=== PATIENT | male | born 1975 | race African-American/Black ===

== ENCOUNTER 2024-04-23 08:41 | Inpatient (IN) ==
--- NOTE | 2024-04-23 09:49 | Emergency Department Note ---
Impression & Plan Acute osteomyelitis of toe of right foot, Acute kidney injury ED Provider Note CHIEF COMPLAINT: right 2nd toe infection HISTORY OF PRESENT ILLNESS: This 48 year old male patient presents to the emergency department via private vehicle accompanied by corrections officers for right second toe infection. Patient is infection has been ongoing since December. He notes that he is being followed by the wound clinic. He states he was referred here today because they were concerned that the wound extended to the bone. Patient states there has been no other new symptoms. He notes that he has not followed with orthopedics, though chart review does indicate that he has been seen by Dr. Flores at [facility] orthopedics. Patient states he was sent here to determine whether or not he needed to have the toe amputated. Of note, he is scheduled for an arterial Doppler study today as an outpatient and then MRI for later in the week to further evaluate his symptoms. Pt. denies fever/chills. No nausea or vomiting. No body aches or systemic symptoms. History provided by: Patient, chart review REVIEW OF SYSTEMS: A 10 system review of systems was performed with positives and pertinent negatives listed in the history of present illness. All other systems were reviewed and are negative. ALLERGIES: NKDA PHYSICAL EXAM: VITALS: Vitals are noted on the nurse's note and reviewed by myself. GENERAL: This is a 48 year old male, in no acute distress, nondiaphoretic, well- developed well-nourished. SKIN: Ulcerative wound on the plantar aspect of the right second toe. No obvious visible bone at the base of the wound. The skin color is pale on the skin surrounding the wound. There is no erythema. No purulent discharge or bleeding. The skin was without rashes, erythema, edema, or bruising. There is no tenting of the skin. Capillary refill less than 2 seconds. HEAD: Normocephalic atraumatic. EYES: Conjunctivae without injection, sclerae without icterus. MOUTH: Mucous membranes moist. NECK: Supple without nuchal rigidity. No lymphadenopathy. Cervical spine is nontender. No JVD. HEART: Regular rate and rhythm without murmurs gallops or rubs. LUNGS: Clear to auscultation bilaterally without wheezes, rales or rhonchi. No retractions or accessory muscle use. ABDOMEN: Positive bowel sounds x 4. Soft, nontender, without masses or organomegaly. Talley sign negative. No guarding or rebound tenderness. MUSCULOSKELETAL: No muscle atrophy, erythema, or edema noted. Full range of motion without joint tenderness in all extremities. Tenderness to palpation of the wound on the right 2nd toe. Otherwise, no tenderness to palpation. Normal gait. Strength 5/5 throughout. NEURO: Patient was alert and oriented to person place and time. Normal sensation to light and sharp touch. Deep tendon reflexes 2+ throughout. No focal neurological deficits. Imaging as interpreted by myself and the radiologist revealed acute osteomyelitis, with radiologist interpretation as above. I agree with the radiologist's findings as based upon my independent interpretation. EMERGENCY DEPARTMENT COURSE: The patient was seen and evaluated as above. Pt. presents from wound clinic for evaluation of right 2nd toe infection. Wound has been present for several months, but pain and purulence has acutely worsened. IV access obtained, labs drawn. No leukocytosis, anemia, thrombocytopenia. Hepatic function and electrolytes without significant abnormality. Creatinine elevated at 1.8. Inflammatory markers elevated. Discussed the case with my attending physician. Recommended inpatient care due to acute osteomyelitis and initiating IV vancomycin. Discussed case with [facility] Hospitalist. They agreed to evaluate patient. I was asked by the [facility] hospitalist to consult with orthopedics in order to ensure they are comfortable with consulting on this patient, as they noted the patient was apparently referred for toe amputation. Pt. was unclear that was the primary reason, and it appears per chart review the patient was having worsening infection symptoms to include worsening pain and purulence. I did discuss the case with Dr. Sims, orthopedic surgeon general education professor. He notes that often, these cases are managed by podiatry, however if podiatry is uncomfortable managing the case or runs into complications, he is happy to assist. I discussed this recommendation with Dr. Malin. He was concerned that if orthopedics was unwilling to manage the patient or podiatry was unavailable, that the patient may need to be transferred. Consulted again with orthopedics to confirm their willingness to become involved if necessary and was advised they are willing if needed. Please see hospitalist dictation regarding ongoing management and care as well as final disposition of this patient. I attest that I have personally reviewed the patient medication list. I attest that I have reviewed the patient's blood pressure and it was found to be normal GCS: 15 In the evaluation and treatment of this patient the following differential diagnoses were entertained: Cellulitis, abscess, MRSA infection, osteomyelitis, DVT, necrotizing fasciitis, dermatitis, drug eruption, allergic reaction, as well as other pathologies. The chart was completed utilizing [employer] Speech voice recognition software. Grammatical errors, random word insertions, pronoun errors, and incomplete sentences are an occasional consequence of this system due to software limitations, ambient noise, and hardware issues. Any formal questions or concerns about the content, text, or information contained within the body of this dictation should be directly addressed to the provider for clarification. Past Med/Surg History Problem List (Updated 04/23/24 @ 17:00 by Lucrecia Anrdes PA-C) Acute kidney injury (Acute) Anemia Hypertension Hyperlipidemia Diabetes type 2, controlled Acute osteomyelitis of toe of right foot (Acute) Diabetic toe ulcer (Acute) Medical History Protein in urine Murmur, heart Glaucoma Depressive disorder Osteoarthritis of left knee Toe osteomyelitis, right Social History Smoking Status: Former smoker Hx Alcohol Use: No Hx Substance Use: No Preferred Language: Albanian Communication Ability: Effective Visual Impairment: Limited Hearing Ability: Normal Batt Machine Operator Required: No Beliefs That Will Affect Care: Sikh Sikh Beliefs: Islamic Current Living Situation: Other Current Living Situation Comment: [facility] current occupational status: unemployed Feels Safe at Home: Yes Diet: regular caffeine: Yes during the past year weight has: increased > 10 lbs Dental Care, Regularly: No Physical Activity Frequency: Daily Assistive Devices: Glasses Allergies Allergies Allergy/AdvReac Type Severity Reaction Status Date / Time No Known Allergies Allergy Unverified 04/23/24 07:46 Home Meds Home Medications Medication Instructions Recorded Confirmed aspirin 81 mg tablet,delayed 81 mg PO DAILY ##0 06/15/16 04/23/24 release brimonidine 0.2 % eye drops 1 drp OPB TID 90 days #15 mL 06/15/16 04/23/24 latanoprost 0.005 % eye drops 1 drp OPB PM #7.5 mL 06/15/16 04/23/24 metformin 1,000 mg tablet 1,000 mg PO BID #0 tabs 06/15/16 04/23/24 timolol 0.5 % eye drops 1 drp OPB BID 60 days #10 mL 06/15/16 04/23/24 amlodipine 10 mg tablet 10 mg PO DAILY 12/26/23 04/23/24 atorvastatin 40 mg tablet 40 mg PO HS 12/26/23 04/23/24 dapagliflozin propanediol 10 mg 10 mg PO DAILY 12/26/23 04/23/24 tablet dorzolamide 2 % eye drops 1 drp OPB TID 12/26/23 04/23/24 insulin glargine 100 unit/mL (3 38 unit subcut QAM 12/26/23 04/23/24 mL) subcutaneous pen insulin regular human 100 unit/mL 2 - 12 sliding scale dose subcut 12/26/23 04/23/24 injection solution (Novolin R USEASDIRECTD Regular U-100 Insulin) pilocarpine HCl 2 % eye drops 1 drp OPB BID 12/26/23 04/23/24 valsartan 160 mg tablet 160 mg PO DAILY 12/26/23 04/23/24 labetalol 200 mg tablet 400 mg PO BID 02/23/24 04/23/24 mirtazapine 45 mg tablet 45 mg PO HS 04/23/24 04/23/24 Results & Data (ED) Vital Signs Vital Signs - 24 hr 04/23/24 08:56 04/23/24 10:42 04/23/24 12:48 Temperature 36.9 C Temperature Source Skin Pulse Rate 81 Pulse Rate [Radial] 78 76 Pulse Rhythm [Radial] Regular Regular Respiratory Rate 16 18 18 Respiratory Effort / Characteristics Non-Labored Spontaneous Non-Labored Non-Labored Respiratory Depth Normal Normal Normal Respiratory Pattern Regular Regular Regular Blood Pressure 136/76 Blood Pressure [Right Arm] 140/75 144/83 H Blood Pressure Mean 96 Blood Pressure Mean [Right Arm] 96 103 Pulse Oximetry 96 96 97 Oxygen Delivery Method Room Air Room Air Room Air Sepsis Recent Fever Within 48 Hours No Sepsis New/Unexplained Change in Mental Status N/A Sepsis Action Taken by Nursing No Action Required Laboratory Data 04/23/24 09:30 04/23/24 09:30 Lab Results 04/23/24 Range/Units 09:30 WBC 8.40 (4.8-10.8) K/ul RBC 3.38 L (4.70-6.10) M/uL Hgb 10.1 L (14.0-18.0) g/dl Hct 30.0 L (42.0-52.0) % MCV 88.8 (80.0-100.0) fL MCH 29.9 (25.0-34.0) pg MCHC 33.7 (32.0-36.0) g/dL RDW Std Deviation 39.8 (36.4-46.3) fL RDW Coeff of Gary 12.2 (11.5-14.5) % Plt Count 178 (130-400) K/uL MPV 10.9 (9.4-12.4) fL Immature Gran % (Auto) 0.6 % Neut % (Auto) 68.8 % Lymph % (Auto) 17.6 % Cannon % (Auto) 12.6 % Eos % (Auto) 0.0 % Baso % (Auto) 0.4 % Neut # (Auto) 5.78 (1.40-6.50) K/uL Lymph # (Auto) 1.48 (1.20-3.40) K/uL Cannon # (Auto) 1.06 H (0.11-0.59) K/uL Eos # (Auto) 0.00 (0.00-0.50) K/uL Baso # (Auto) 0.03 (0.00-0.20) K/uL Immature Gran # (Auto) 0.05 (0.01-0.20) K/uL ESR 70 H (0-15) mm/hr Sodium 136 (136-145) mmol/L Potassium 4.4 (3.5-5.1) mmol/L Chloride 104 (98-107) mmol/L Carbon Dioxide 23 (21-32) mmol/L Anion Gap 9 (3-11) BUN 21 (6-23) mg/dl Creatinine 1.82 H (0.6-1.4) mg/dl Est Cr Clr Drug Dosing 69.8 ml/min eGFR 44.97 BUN/Creatinine Ratio 11.5 (10-20) Glucose 206 H (70-99(Fasting)) mg/dl Calcium 9.4 (8.6-10.3) mg/dl Total Bilirubin 0.7 (0.2-1.0) mg/dl AST 17 (13-39) U/L ALT 16 (7-52) U/L Alkaline Phosphatase 48 (34-104) U/L C-Reactive Protein 10.10 H (0-0.5) mg/dl Total Protein 7.4 (6.0-8.3) gm/dl Albumin 3.8 (3.4-5.0) gm/dl Globulin 3.6 (2.5-4.0) gm/dl Albumin/Globulin Ratio 1.1 (0.9-2) Administered Medications Discontinued Medications Vancomycin HCl 2,500 mg/ (Sodium Chloride) 550 mls @ 180 mls/hr IV NOW ONE Stop: 04/23/24 15:18 Last Infusion: 04/23/24 16:01 Dose: Infused Documented By: Admin: 04/23/24 12:47 Dose: 180 mls/hr Documented By: NILES Imaging Data Radiologist's Impression: Toe X-Ray 04/23/24 09:19 XR toe(s) RT min 2V CLINICAL HISTORY: wound right 2nd toe, increased pain/wound size COMPARISON: Right second toe radiographs December 06, 2023. Right foot MRI February 14, 2024. FINDINGS: Marked soft tissue swelling of the right second toe is noted. Soft tissue gas extends to the distal tuft of the right second distal phalanx. Bony erosion of the distal phalanx of the second toe has developed. A lucency within the distal phalanx suggests a fracture which was shown on prior MRI. No additional sites of bony erosion are identified. IMPRESSION: Right second toe wound with associated marked soft tissue tissue swelling. Interval development of bony erosion of the right second distal phalanx consistent with acute osteomyelitis. Redemonstration of a right second distal phalangeal fracture, as shown on previous MRI. ACT 112: Negative or not required by law. Electronically signed by: John Iglesias M.D. 04/23/2024 10:02 AM Duplex Scan Lower Extremity Artery 04/23/24 13:15 RIGHT LOWER EXTREMITY ARTERIAL DOPPLER ULTRASOUND CLINICAL HISTORY: osteomyelitis, decreased pulses COMPARISON STUDY: No previous studies for comparison. TECHNIQUE: Color and duplex Doppler sonography of the arterial system of the right lower extremity was performed. FINDINGS: Mild to moderate atherosclerotic plaque within the right lower extremity is noted. No elevated velocities were identified. There is triphasic flow within the right common femoral, superficial femoral and popliteal arteries. Biphasic flow was noted within the right calf vessels. No vessel occlusion was identified. IMPRESSION: 1. Mild to moderate atherosclerotic plaque within the right lower extremity without sonographic evidence for hemodynamically significant stenosis. 2. Patent right lower extremity vessels. ACT 112: Negative or not required by law. Electronically signed by: John Iglesias M.D. 04/23/2024 3:03 PM Discharge Plan Visit Data Chief Complaint: Wound Stated Complaint: RT SECOND TOE/WOUND ED Provider: Logan Romero ED Midlevel Provider: Lucrecia Andres Discharge Problem: Acute osteomyelitis of toe of right foot, Acute kidney injury Patient Disposition: Admitted As Inpatient Discharge Instructions Interventions: ED Discharge Assessment Last Done: 04/23/24 14:51
--- NOTE | 2024-04-23 10:03 | XRay Report ---
XR toe(s) RT min 2V CLINICAL HISTORY: wound right 2nd toe, increased pain/wound size COMPARISON: Right second toe radiographs December 06, 2023. Right foot MRI February 14, 2024. FINDINGS: Marked soft tissue swelling of the right second toe is noted. Soft tissue gas extends to t he distal tuft of the right second distal phalanx. Bony erosion of the distal phalanx of the second t oe has developed. A lucency within the distal phalanx suggests a fracture which was shown on prior MR I. No additional sites of bony erosion are identified. IMPRESSION: Right second toe wound with associated marked soft tissue tissue swelling. Interval development of amairani ny erosion of the right second distal phalanx consistent with acute osteomyelitis. Redemonstration of a right second distal phalangeal fracture, as shown on previous MRI. ACT 112: Negative or not required by law. Electronically signed by: John Iglesias M.D. 04/23/2024 10:02 AM
[2024-04-23 10:14] LABS: Albumin Globulin Ratio 1.1 (0.9-2); Albumin Level 3.8 gm/dl (3.4-5.0); BUN Creatinine Ratio 11.5 (10-20); Bilirubin,Total 0.7 mg/dl (0.2-1.0); C Reactive Protein 10.1 mg/dl (0-0.5); Calcium 9.4 mg/dl (8.6-10.3); Creatinine Clr Calc Pharmacy 69.8 ml/min; Globulin 3.6 gm/dl (2.5-4.0); Potassium 4.4 mmol/L (3.5-5.1); Total Protein 7.4 gm/dl (6.0-8.3)
--- OUTSIDE RECORDS SUMMARY | 2024-04-23 10:28 | External Medical Summary | Continuity of Care Document ---
Author Name Unknown Organization [id number] Address [address] [place] [id number] Care Team Providers Care Grounds Maintenance Supervisor Name Role Phone Tommie Gaytanmeli Bishopise Primary Care Physician [phone] [id number] Date[facility]s): 03/15/24 - 03/15/24 [facility] [address] [id number] [facility] [address] [place] [id number] Encounter Diagnosis Toe osteomyelitis(Discharge Diagnosis) - 03/15/24 Discharge Disposition: Home or Self Care Attending Physician: MD Sandra, Dhiraj A Allergies, Adverse Reactions, Alerts No Known Medication Allergies Assessment and Plan Extracted from: Title:Follow Up Visit Author:MD Tubbs Daniel Date:03/15/24 1.Toe osteomyelitis -continue with daily dressings -continue with IV vancomycin, per ID plan, Alfonso AG, and wound care -weight-bearing as tolerated with post-op shoes -discussed if things worsen and infection persists, he may need to go the the hospital and may require a second toe amputation. -at this time, there is no need for further follow up, unless infection spreads or worsens. Medications Acidophilus Start: 02/15/24 7:14:00 AM EDT, PO Start Date: 02/15/24 Status: Ordered amLODIPine Start: 02/15/24 7:17:00 AM EDT, 10 mg =, PO Start Date: 02/15/24 Status: Ordered Aspir 81 Start: 02/15/24 7:17:00 AM EDT, 81 mg =, PO Start Date: 02/15/24 Status: Ordered atorvastatin Start: 02/15/24 7:15:00 AM EDT, 40 mg =, PO Start Date: 02/15/24 Status: Ordered brimonidine 0.2% ophthalmic solution Start: 02/15/24 7:15:00 AM EDT Start Date: 02/15/24 Status: Ordered ciprofloxacin Start: 02/15/24 7:13:00 AM EDT, 500 mg =, PO Start Date: 02/15/24 Status: Ordered dapagliflozin 10 mg oral tablet Start: 02/15/24 7:17:00 AM EDT Start Date: 02/15/24 Status: Ordered dorzolamide 2% ophthalmic solution Start: 02/15/24 7:14:00 AM EDT Start Date: 02/15/24 Status: Ordered insulin glargine Start: 02/15/24 7:18:00 AM EDT Start Date: 02/15/24 Status: Ordered metFORMIN Start: 02/15/24 7:17:00 AM EDT, 1,000 mg =, PO Start Date: 02/15/24 Status: Ordered mirtazapine Start: 02/15/24 7:14:00 AM EDT, 45 mg =, PO Start Date: 02/15/24 Status: Ordered NovoLIN R Vial 100 units/mL injectable solution Start: 02/15/24 7:14:00 AM EDT Start Date: 02/15/24 Status: Ordered Pilocar 2% ophthalmic solution Start: 02/15/24 7:15:00 AM EDT Start Date: 02/15/24 Status: Ordered Timoptic 0.5% ophthalmic solution Start: 02/15/24 7:17:00 AM EDT Start Date: 02/15/24 Status: Ordered valsartan Start: 02/15/24 7:14:00 AM EDT, 160 mg =, PO Start Date: 02/15/24 Status: Ordered vancomycin 1.5 g/300 mL-D5% intravenous solution Start: 02/15/24 7:13:00 AM EDT Start Date: 02/15/24 Status: Ordered Xalatan 0.005% ophthalmic solution Start: 02/15/24 7:18:00 AM EDT Start Date: 02/15/24 Status: Ordered Mental Status 03/15/24 Barriers to Learning one year None evide nt Mandatory Health Literacy Documentation Yes Health Literacy Communication Barriers N ever Primary Language Cambodian Problem List Condition Confirmation Course Effective Dates Status H ealth Status Informant Diabetes Confirmed Active High blood pressure Confirmed Active Toe osteomyelitis Confirmed Active Diagnosis Diagnosis Type Effective Dates Health Status Clinical Service Informant Toe osteomyelitis Discharge Diagnosis 03/15/24 Procedures Procedure Date Related Diagnosis Body Site Status Amputation of toe Complet ed Social History Social History Type Response Smoking Status Never smoked cigaret maura Sex Male Sex Representation Male (finding) Ortho Outpt Note * MD Sandra, Dhiraj A: MODIFY MD Sandra, Dhiraj A: MODIFY Event Display: Ortho Outpt Note Authored Date: [id number] Chief Complaint R 2nd toe f/u Primary Care Provider MD Lukas, Dianna Agee Subjective Mr. Hay is a 48M who presents to orthopedic clinic as follow up for right second toe pain. 02/16/2024:[id number] Miki presents today forright foot, 2nd toe pain. Patient states since November, he believes it started off as an ingrown toe. He is diabetic. He hasbeen seen by wound care.He has been on antibiotics since 12/06/2023, and is being followed by ID. Herateshis pain as a0/10. Interval history 03/15/2024: dressing applied daily with medical staff. He is in IV vancomycinsince 12/06/2023. 0/10 pain, denies fevers, chills, feels color of his toe has been improving. Mild drainage noted from plantar aspectof toe, which has been improving. They have been doing Aquacel. Has been walking in boot, without di fficulties. Objective Physical Exam focused right lower extremity exam: 2+DP pulse Sensation to light touch isdiminished in all toes Brisk cap refill< 2 seconds - Forefoot squeeze test - Tenderness to palpation Can flex and extend Swollen toe PIP joint, distally Slight hammer toe present Ulceration atthe pad of the 2nd toe with minimalserosanguineous drainage on dressing No active bleeding or drainage Surrounding callous about 2x1 cm Diagnostic Results 02/14/2024 which shows soft tissue swelling. Concern for osteomyelitis of the distal phalanx over the second toe, otherwise noabscess. Incidentalfinding of degenerative changes of the foot Assessment/Plan 1.Toe osteomyelitis -continue with daily dressings -continue with IV vancomycin, per ID plan, Aquacel AG, and wound care -weight-bearing as tolerated with post-op shoes -discussed if things worsen and infection persists, he may need to go the the hospital and may require a second toe amputation. -at this time, there is no need for further follow up, unless infection spreads or worsens. Attestation I, Dr. Flores, saw and examined the patient and discussed the management with the fellow. I reviewedthe fellow's note and agree with the documented findings and the plan of care we developed. Electronic Signature on File Electronically Reviewed/Signed by: Juan Manuel Tubbs MD Author Signature Dt/Tm:03/15/2024 02:21 PM Resident Division of Sports Medicine Electronically Reviewed/Signed by: Dhiraj Flores MD Cosigner Signature Dt/Tm: 03/15/2024 04:03 PM [facility] Infectious Diseases Physician Department of Orthopaedics and Rehabilitation [facility] [address], [place] [address] Patient Care team information Care Team Personnel Name: MD Lukas, Dianna Agee Position: Referring Member Role: Primary Care Provider Address: [facility] Department of [address] [address] [place]
--- OUTSIDE RECORDS SUMMARY | 2024-04-23 10:28 | External Medical Summary | Continuity of Care Document ---
Author Name Unknown Organization [facility] [id number] Address [address] [place] [phone] Care Team Providers Care Director Group Sales Name Role Phone Dianna Gaytan Primary Care Physician [phone] [id number] Date(s): 02/16/24 - 02/16/24 [facility] [address] [place] [id number] [address] Encounter Diagnosis Toe osteomyelitis(Discharge Diagnosis) - 02/16/24 Discharge Disposition: Home or Self Care Attending Physician: MD Cornelius Paul S Referring Physician: MD Gaytan Jacqueline Denise Allergies, Adverse Reactions, Alerts No Known Medication Allergies Assessment and Plan Extracted from: Title:Dhiraj Flores Author:Raya Tamez Date:02/16/24 Impression:48 yearol dMale with right 2nd toe osteomyelitis GOAL: Reduce infection PLAN: - Betadine and sterile dressing was placed - Continue with antibiotics,Aquacel AG, and wound care - Weight-bearing as tolerated with post-op shoe - Discussed if things worsen and infection persists, he may need to go to the hospitaland mayrequire a rightsecond toe amp. Follow-up in 4 weeksfor clinical reevaluation The patient understood all my instructions and explanations; all their questions were satisfactorily addressed. Medications Acidophilus Start: 02/15/24 7:14:00 AM EDT, [...] Start Date: 02/15/24 Status: Ordered Mental Status 02/16/24 Barriers to Learning one year None evide nt Mandatory Health Literacy Documentation Yes Health Literacy Communication Barriers N ever Primary Language Cape Verdean Problem List Condition Confirmation Course Effective Dates Status H ealt Status Informant Diabetes Confirmed Active High blood pressure Confirmed Active Toe osteomyelitis Confirmed Active Diagnosis Diagnosis Type Effective Dates Health Status Clinical Service Informant Toe osteomyelitis Discharge Diagnosis 02/16/24 Procedures Procedure Date Related Diagnosis Body Site Status Amputation of toe Complet ed Vital Signs Most recent to oldest [Reference Range]: 1 Height 190 cm (02/16/24 8:20 AM) Patient Weight 128 kg (02/16/24 8:20 AM) Body Mass Index 35.46 kg/m2 (02/16/24 8:20 AM) Social History Social History Type Response Smoking Status Never smoked cigaret maura Sex Male Sex Representation Male (finding) Ortho Outpt Note * MD Sandra, Dhiraj A: MODIFY MD Sandra, Dhiraj A: MODIFY, MODIFY Raya Tamez: MODIFY, MODIFY Raya Tamez: MODIFY, MODIFY Raya Tamez: MODIFY Event Display: Ortho Outpt Note Authored Date: [id number] Primary Care Provider MD Gaytan Jacqueline Denise Referring Provider MD Lukas, Dianna Agee Chief Complaint right foot, 2nd toe pain History of Present Illness [id number] Miki presents today forright foot, 2nd toe pain. Patient states since November, he believes it started off as an ingrown toe. He is diabetic. He hasbeen seen by wound care.He has been on antibiotics since 12/06/2023, and is being followed by ID. Herateshis pain as a0/10. Review of Systems A 14 point review of systems is available in the EMR. Physical Exam Focusing on the patient'sRIGHT lower extremity: 2+DP pulse Sensation to light touch is intact diminished in all toes Brisk cap refill< 2 seconds - Forefoot squeeze test - Tenderness to palpation Can flex and extend Swollen toe PIP joint, distally Deformed nail Slight hammer toe present Ulceration atthe pad of the 2nd toe No active bleeding or drainage Surrounding callous about 2x1 cm Diagnostic Results MRI: I reviewedan MRIof the right foot obtained on 02/14/2024 which shows soft tissue swelling. Concern for osteomyelitis of the distal phalanx over the second toe, otherwise noabscess. Incidental finding of degenerative changes of the foot XRAYS: three-phrase I reviewed an x-ray of the 2nd toe right foot on 12/06/2023 which shows erosive changes of distal phalanx concerning osteomyelitis Assessment/Plan Impression:48 yearoldMale with right 2nd toe osteomyelitis GOAL: Reduce infection PLAN: - Betadine and sterile dressing was placed - Continue with antibiotics,Aquacel AG, and wound care - Weight-bearing as tolerated with post-op shoe - Discussed if things worsen and infection persists, he may need to go to the hospitaland mayrequire a rightsecond toe amp. Follow-up in 4 weeksfor clinical reevaluation The patient understood all my instructions and explanations; all their questions were satisfactorily addressed. Attestation I, Raya Tamez, have scribed for, and in the presence of, Dhiraj Flores on this date,02/16/2024 07:55:59. I, Dr. Flores, saw and examined the patient with Raya Tamez acting as my scribe. I reviewed the note and agree with the documented findings and the plan of care I developed. Problem List/Past Medical History Ongoing Toe osteomyelitis Medications amLODIPine, 10 mg, PO aspirin(Aspir 81), 81 mg, PO atorvastatin, 40 mg, PO brimonidine ophthalmic(brimonidine 0.2% ophthalmic solution) ciprofloxacin, 500 mg, PO dapagliflozin(dapagliflozin 10 mg oral tablet) dorzolamide ophthalmic(dorzolamide 2% ophthalmic solution) insulin glargine insulin regular(NovoLIN R Vial 100 units/mL injectable solution) lactobacillus acidophilus(Acidophilus), PO latanoprost ophthalmic(Xalatan 0.005% ophthalmic solution) metFORMIN, 1000 mg, PO mirtazapine, 45 mg, PO pilocarpine ophthalmic(Pilocar 2% ophthalmic solution) timolol ophthalmic(Timoptic 0.5% ophthalmic solution) valsartan, 160 mg, PO vancomycin(vancomycin 1.5 g/300 mL-D5% intravenous solution) Allergies No Known Medication Allergies Social History Smoking Status Never smoked cigarettes Recommendations Health Maintenance Pending(in the next year) OverDue Adult Influenza Vaccine due12/04/23and every 1year Satisfied(in the past 1 year) There are no satisfied recommendations within the defined date range Electronic Signature on File Electronically Reviewed/Signed by: Raya Tamez Author Signature Dt/Tm:02/16/2024 09:04 AM Electronically Reviewed/Signed by: Raya Tamez Cosigner Signature Dt/Tm: 02/16/2024 09:04 AM Electronically Reviewed/Signed by: Raya Tamez Cosigner Signature Dt/Tm: 02/16/2024 09:07 AM Electronically Reviewed/Signed by: MD Robson Watsoner Signature Dt/Tm: 02/16/2024 01:38 PM [facility] [employer] 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
[2024-04-23 11:05] LABS: Basophils # (auto) 0.03 K/uL (0.00-0.20); Basophils % (auto) 0.4 %; Hemoglobin 10.1 g/dl (14.0-18.0); Immature Granulocytes # (auto) 0.05 K/uL (0.01-0.20); Immature Granulocytes % (auto) 0.6 %; Lymphocytes # (auto) 1.48 K/uL (1.20-3.40); Lymphocytes % (auto) 17.6 %; Mean Corpuscular Hemoglobin 29.9 pg (25.0-34.0); Mean Corpuscular Hgb Conc 33.7 g/dL (32.0-36.0); Mean Corpuscular Volume 88.8 fL (80.0-100.0); Mean Platelet Volume 10.9 fL (9.4-12.4); Monocytes # (auto) 1.06 K/uL (0.11-0.59); Monocytes % (auto) 12.6 %; Neutrophils # (auto) 5.78 K/uL (1.40-6.50); Neutrophils % (auto) 68.8 %; Platelet Count 178 K/uL (130-400); RDW Coefficient of Variation 12.2 % (11.5-14.5); RDW Standard Deviation 39.8 fL (36.4-46.3); Red Blood Count 3.38 M/uL (4.70-6.10)
[2024-04-23] MEDS ORDERED: VANCOMYCIN HCL 2,500 MG in DEXTROSE 5% 500 ML IV ONE (12:03)
[2024-04-23] MEDS ORDERED: VANCOMYCIN CONSULT ACTIVE PRN (12:03)
--- NOTE | 2024-04-23 12:20 | History & Physical Report ---
Date of Service April 23, 2024 Assessment & Plan (1) Acute osteomyelitis of toe of right foot: Plan: Patient with known right second distal phalanx osteomyelitis, Completed course of vancomycin and Bactrim in early April worsening pain, drainage, and increased wound measurements - ESR 70, CRP 10.10 - Foot x-ray confirming osteomyelitis of second distal phalanx - MRI 02/14/2024 showed concern for osteomyelitis - wound culture 03/21 showing Citrobacter Koseri, resistant to quinolones, and MRSA - follows with Dr. Flores, orthopedics, who recommended amputation if current interventions failed - arterial Doppler ordered - on-call orthopedics recommended podiatry consult - Orthopedic consult placed to Dr. Flores given patient sees outpatient - podiatry consult placed to Denise De Jesus with [facility] - discontinue Vanco -> change to Daptomycin and Cefepime - hold statin while on Dapto (2) Diabetes type 2, controlled: Plan: Controlled on Metformin, dapagliflozin, and Insulin at home - No A1c on file; add to AM labs - continue with home Lantus 38 units QAM - SSI with target BSG range 110-140mg/dL, CF 20, carb ratio 7 - T2DM diet - BSG ACHS if eating, q6h if npo - pharmacy glycemic consul given insulin use and wounds (3) Hyperlipidemia: Plan: - no lipid panel on file; add to am labs - continue home baby aspirin - hold home statin with daptomycin use (4) Hypertension: Plan: mildly elevated on admission - Continue home medications - amlodipine, labetalol, losartan (5) Anemia: Plan: Appears chronic - Hemoglobin 10.1 on admission - Iron panel, B12, folate with a.m. labs (6) Peripheral artery disease: Plan Chronic stable diagnoses: Glaucoma - continue home eye drops VTE ppx: SCDs Diet: T2DM Code status: Full Dispo: med/surg Admission and Anticipated Discharge Date Admission Date: 04/23/24 History of Present Illness Chief Complaint: Wound Primary Care Provider: LIZZ Muller Patient is a 48-year-old male with a past medical history of type 2 diabetes, hypertension, hyperlipidemia, and glaucoma. He has known osteomyelitis of his right second distal phalanx. He has been followed by orthopedics and wound care for the past few months. He was sent in by wound care today due to increased pain, purulent drainage, and increased wound measurements of his toe. 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 patient confirms that wound has had increased drainage, swelling, and pain. Although he also states he does not have much feeling in his feet. He stated that he stopped the antibiotics in early April, then about a week ago the symptoms began to worsen again. He follows with Dr. Flores, orthopedics, Along with wound care. He uses a boot to walk around. As per wound care note, patient was to have ID visit in March, that was rescheduled for early May. Dr. Flores recommended in March that if current management does not improve, can consider amputation. Patient denies fever, chills, headache, dizziness, lightheadedness, vision changes, rhinorrhea, sore throat, cough, sputum production, dyspnea, dyspnea on exertion, chest pain, abdominal pain, nausea, vomiting, diarrhea, constipation, dysuria, hematuria, edema, numbness, tingling. Allergies Allergy/AdvReac Type Severity Reaction Status Date / Time No Known Allergies Allergy Unverified 04/23/24 07:46 Home Medications Medication Instructions Recorded Confirmed Type aspirin 81 mg tablet,delayed 81 mg PO DAILY ##0 06/15/16 04/23/24 History release brimonidine 0.2 % eye drops 1 drp OPB TID 90 days #15 mL 06/15/16 04/23/24 History latanoprost 0.005 % eye drops 1 drp OPB PM #7.5 mL 06/15/16 04/23/24 History metformin 1,000 mg tablet 1,000 mg PO BID #0 tabs 06/15/16 04/23/24 History timolol 0.5 % eye drops 1 drp OPB BID 60 days #10 mL 06/15/16 04/23/24 History amlodipine 10 mg tablet 10 mg PO DAILY 12/26/23 04/23/24 History atorvastatin 40 mg tablet 40 mg PO HS 12/26/23 04/23/24 History dapagliflozin propanediol 10 mg 10 mg PO DAILY 12/26/23 04/23/24 History tablet dorzolamide 2 % eye drops 1 drp OPB TID 12/26/23 04/23/24 History insulin glargine 100 unit/mL (3 38 unit subcut QAM 12/26/23 04/23/24 History mL) subcutaneous pen insulin regular human 100 unit/mL 2 - 12 sliding scale dose subcut 12/26/23 04/23/24 History injection solution (Novolin R USEASDIRECTD Regular U-100 Insulin) pilocarpine HCl 2 % eye drops 1 drp OPB BID 12/26/23 04/23/24 History valsartan 160 mg tablet 160 mg PO DAILY 12/26/23 04/23/24 History labetalol 200 mg tablet 400 mg PO BID 02/23/24 04/23/24 History mirtazapine 45 mg tablet 45 mg PO HS 04/23/24 04/23/24 History Past Med/Surg History Problem List (Updated 04/24/24 @ 07:32 by Riley Malin MD) Peripheral artery disease Acute kidney injury (Acute) Anemia Hypertension Hyperlipidemia Diabetes type 2, controlled Acute osteomyelitis of toe of right foot (Acute) Diabetic toe ulcer (Acute) Medical History Protein in urine Murmur, heart Glaucoma Depressive disorder Osteoarthritis of left knee Toe osteomyelitis, right Social History Smoking Status: Former smoker Hx Alcohol Use: No Hx Substance Use: No Preferred Language: [place]orese Communication Ability: Effective Visual Impairment: Limited Hearing Ability: Normal 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 Non-toxic appearing. HEENT- EOMI, mucous membranes moist. Hearing grossly intact. Heart-normal S1 and S2. No murmurs, rubs or gallops. Lungs-clear bilaterally, no respiratory distress, no accessory muscle use. Abdomen-normal bowel sounds and soft. No ascites noted. Non-tender. Extremities- no clubbing, cyanosis. Right second toe with ulcer to the plantar side, swollen. Bleeding with no purulent discharge. No visible bone. Rheumatologic-normal range of motion. Psychiatric-normal affect. Results & Data Results & Data Vital Signs (Past 12 Hours) Vital Signs Temp Pulse Pulse Resp BP BP Pulse Ox 04/23/24 10:42 78 18 140/75 96 04/23/24 08:56 36.9 C 81 16 136/76 96 O2 Del Method 04/23/24 10:42 Room Air 04/23/24 08:56 Room Air Code Status & VTE Plan Code Status Full VTE Prophylaxis Plan VTE Prophylaxis will be ordered: Yes Supervising Physician Co-Signing Physician Notes I personally saw and examined the patient. I independently reviewed the labs, EKG, imaging, problem list, medication list, past medical history and family history. I verified all crowell points and agree with Alvina Shaw PA-C with the following exceptions and/or additions: 48 year old presents to the ER with erythema and swelling of 2nd toe on right foot. No fever of chills. Off antibiotics for 1 month after prolonged 2 month course which initially improved his symptoms. O/E HS RRR, no murmurs, Chest CTAB, Abdo SNT, 2nd toe distal ulcer with soft tissue swelling to ankle A/P Acute osteomyelitis - daptomycin + cefepime, consult ortho/podiatry, NPO after midnight PAD - mild to moderate atherosclerotic plaque without evidence of hemodynamically significant stenosis, lipid panel with AM labs, continue aspirin, no need for vascular consult, good DP/PT pulses on exam PG Care Time/CCT Total # of Minutes Spent Total Time Spent with Patient: Total time spent is greater than 50% in coordination of care (as documented) at patient's floor/unit and/or counseling patient: Coding Level of Care Code 40816 INT INP/OBS CARE 3/75MIN Diagnoses Acute osteomyelitis of toe of right foot M86.171 Diabetes type 2, controlled E11.9 Hyperlipidemia E78.5 Hypertension I10 Anemia D64.9 Peripheral artery disease I73.9
[2024-04-23] MEDS: VANCOMYCIN HCL 2,500 MG in SODIUM CHLORIDE 0.9% 500 ML IV ONE (12:47)
--- NOTE | 2024-04-23 15:05 | Ultrasound Report ---
RIGHT LOWER EXTREMITY ARTERIAL DOPPLER ULTRASOUND CLINICAL HISTORY: osteomyelitis, decreased pulses COMPARISON STUDY: No previous studies for comparison. TECHNIQUE: Color and duplex Doppler sonography of the arterial system of the right lower extremity wa s performed. FINDINGS: Mild to moderate atherosclerotic plaque within the right lower extremity is noted. No eleva moon velocities were identified. There is triphasic flow within the right common femoral, superficial femoral and popliteal arteries. Biphasic flow was noted within the right calf vessels. No vessel occl usion was identified. IMPRESSION: 1. Mild to moderate atherosclerotic plaque within the right lower extremity without sonographic evide nce for hemodynamically significant stenosis. 2. Patent right lower extremity vessels. ACT 112: Negative or not required by law. Electronically signed by: John Iglesias M.D. 04/23/2024 3:03 PM
[2024-04-23] MEDS ORDERED: CARBOHYDRATES FOR HYPOGLYCEMIA PO PRN (15:19)
[2024-04-23] MEDS ORDERED: DOCUSATE SODIUM 100 MG CAP PO PRN (15:19)
[2024-04-23] MEDS ORDERED: GLUCAGON FOR INJ 1 MG VIAL SQ PRN (15:19)
[2024-04-23] MEDS ORDERED: DEXTROSE 50% 50 ML SYRINGE IV PRN (15:19)
[2024-04-23] MEDS ORDERED: GLUCOSE 40% GEL 15 GM TUBE PO PRN (15:19)
[2024-04-23] MEDS ORDERED: PHARMACY GLYCEMIC MGMT CONSULT PRN (15:19)
[2024-04-23] MEDS ORDERED: GLUCOSE 10 TAB/TUBE PO PRN (15:19)
--- NOTE | 2024-04-23 16:29 | Pharmacy Report ---
Pharmacy Glycemic Short Note 2 - Date of Service April 23, 2024 - Glycemic Short BSG Results (Last 24 hours): 04/23/24 09:30 Glucose 206 H OUTPATIENT ANTIDIABETIC REGIMEN: * Lantus 38 units SQ q AM * Novolin R sliding scale (2-12 units)/dose * metformin 1000mg po bid * Farxiga 10mg po daily HbA1c ordered for 04/24 with morning labs ASSESSMENT: * 48 year old male admitted for osteomyelitis of the toe of the right foot. He already completed a course of vancomycin and bactrim earlier this month but presents with worsening pain, drainage, and worsening wound. He is currently ordered cefepime and daptomycin. * His BSG on presentation this morning was 206mg/dL. Pharmacy was consulted for glycemic management while he is admitted. * BSG at dinner time was 153mg/dL. Will add a Lantus scale for tonight (10-20 units) x 1. * Weight based bolus insulin dosing with a stress of 2 will be started at dinner time today. * SCr today is 1.82 (baseline unclear) PLAN FOR INPATIENT GLYCEMIC CONTROL: * Hold outpatient diabetes medications * Basal insulin * Lantus scale (10 units for BSG < 160; 20 units for BSG > or = to 160) tonight at HS x 1, then will reassess dose in the morning. * Bolus insulin * NovoLog per scale ACHS or Q6hrs while NPO * Goal Range: Low 110 mg/dL - High 140 mg/dL * Correction Factor: 25 mg/dL/unit * Nutritional / Prandial insulin per carb ratio of 1 unit per 8 grams CHO consumed
[2024-04-23] MEDS: BRIMONIDINE TARTRATE 0.2% 5ML OPB SCH (17:06)
[2024-04-23] MEDS: DORZOLAMIDE HCL 2% OPH SOLN 10 ML BTL OPB SCH (17:06)
[2024-04-23] MEDS: CEFEPIME 2000MG 2,000 MG/20 ML SYR IV SCH (17:06)
[2024-04-23] MEDS: INSULIN ASPART PER UNIT CHARGE SC SCH (17:17)
[2024-04-23] MEDS ORDERED: DAPTOmycin 400 MG in SYRINGE 0 ML IV SCH (20:00)
[2024-04-23] MEDS ORDERED: LANTUS PER UNIT CHARGE SQ SCH (21:00)
[2024-04-23] MEDS: LANTUS PER UNIT CHARGE SC SCH (21:09)
[2024-04-23] MEDS: DAPTOmycin 600 MG in SYRINGE 0 ML IV SCH (21:10)
[2024-04-23] MEDS: LATANOPROST 0.005% OP SOLN 2.5 ML BTL OPB SCH (21:11)
[2024-04-23] MEDS: MIRTAZAPINE SOLTAB 15 MG PO SCH (21:12)
[2024-04-23] MEDS: LABETALOL HCL 200 MG TAB PO SCH (21:12)
[2024-04-23] MEDS: PILOCARPINE HCL 2% OP SOLN 15 ML BTL OPB SCH (21:13)
[2024-04-23] MEDS: TIMOLOL MALEATE 0.5% OP SOLN 5 ML BTL OPB SCH (21:13)
--- NOTE | 2024-04-23 22:22 | Orthopedic Consultation ---
Date of Consultation April 23, 2024 Assessment & Plan (1) Acute osteomyelitis of toe of right foot: (2) Diabetes type 2, controlled: (3) Diabetic toe ulcer: Plan This is a 48-year-old gentleman who presents to the hospital for increased drainage, pain, swelling of his right second toe. The patient is a patient of Dr. Gunn. I did call Dr. Flores and informed him of the patient admission to the hospital. He states that he will evaluate the patient tomorrow. Given the fact the patient has failed nonoperative management including wound care, antibiotics, offloading, I do think at this point the patient is indicated for amputation of the second digit. Will allow Dr. Flores to weigh in tomorrow. I did inform the patient that with removal of the second visit, the hallux and the third digit will likely migrate to fill the space that he may end up with hallux valgus and/or a crossover toe because of this. The patient states this is exactly what occurred on the contralateral limb, and as such he is an informed consumer. For the time being, continue current medical management. History of Present Illness Reason for Consultation: Right second toe ulcer Requesting Physician: Dr Jerry Attending Physician: Lissa Jerry MD History of Present Illness This is a 48-year-old inmate who presented to the emergency department today with concerns of increased drainage, redness, pain in his right second toe. He is a previous patient of Dr. Gunn who has been following him for this toe. Patient is doing local wound care at the [facility] and has been on antibiotics in the past with the plan of potential need for amputation in the future. Of note, the patient did have amputation of his left second toe in the past for the same problem. At current, patient denies any feelings of systemic illness. He has no fevers or chills. He has no chest pain or shortness of breath. Allergies Allergy/AdvReac Type Severity Reaction Status Date / Time No Known Allergies Allergy Unverified 04/23/24 07:46 Home Medications Medication Instructions Recorded Confirmed Type aspirin 81 mg tablet,delayed 81 mg PO DAILY ##0 06/15/16 04/23/24 History release brimonidine 0.2 % eye drops 1 drp OPB TID 90 days #15 mL 06/15/16 04/23/24 History latanoprost 0.005 % eye drops 1 drp OPB PM #7.5 mL 06/15/16 04/23/24 History metformin 1,000 mg tablet 1,000 mg PO BID #0 tabs 06/15/16 04/23/24 History timolol 0.5 % eye drops 1 drp OPB BID 60 days #10 mL 06/15/16 04/23/24 History amlodipine 10 mg tablet 10 mg PO DAILY 12/26/23 04/23/24 History atorvastatin 40 mg tablet 40 mg PO HS 12/26/23 04/23/24 History dapagliflozin propanediol 10 mg 10 mg PO DAILY 12/26/23 04/23/24 History tablet dorzolamide 2 % eye drops 1 drp OPB TID 12/26/23 04/23/24 History insulin glargine 100 unit/mL (3 38 unit subcut QAM 12/26/23 04/23/24 History mL) subcutaneous pen insulin regular human 100 unit/mL 2 - 12 sliding scale dose subcut 12/26/23 04/23/24 History injection solution (Novolin R USEASDIRECTD Regular U-100 Insulin) pilocarpine HCl 2 % eye drops 1 drp OPB BID 12/26/23 04/23/24 History valsartan 160 mg tablet 160 mg PO DAILY 12/26/23 04/23/24 History labetalol 200 mg tablet 400 mg PO BID 02/23/24 04/23/24 History mirtazapine 45 mg tablet 45 mg PO HS 04/23/24 04/23/24 History Patient History Medical History Protein in urine Murmur, heart Glaucoma Depressive disorder Osteoarthritis of left knee Toe osteomyelitis, right Social History Smoking Status: Former smoker Hx Alcohol Use: No Hx Substance Use: No Preferred Language: Iraqi Communication Ability: Effective Visual Impairment: Limited Hearing Ability: Normal 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 His toe is swollen and erythematous. There is scant yellow drainage coming from the wound. There are no additional ulcers present. The patient has gastrocnemius equinus as evidenced on silverskiold testing. Results & Data Vital Signs (Past 12 Hours) Vital Signs Temp Pulse Pulse Pulse Resp BP BP 04/23/24 20:32 37.0 C 69 14 128/78 04/23/24 15:10 37.2 C 77 18 147/76 H 04/23/24 15:10 37.2 C 77 18 147/76 H 04/23/24 14:51 72 18 158/91 H 04/23/24 14:46 72 18 158/91 H 04/23/24 12:48 76 18 144/83 H 04/23/24 10:42 78 18 140/75 Pulse Ox O2 Del Method 04/23/24 20:32 96 Room Air 04/23/24 15:10 95 Room Air 04/23/24 15:10 95 Room Air 04/23/24 14:51 98 Room Air 04/23/24 14:46 98 Room Air 04/23/24 12:48 97 Room Air 04/23/24 10:42 96 Room Air Laboratory Results ESR 70 CRP 10.10 WBC 8.4 Diagnostic Findings X-rays of the right second toe were personally interpreted and reviewed. These demonstrate osseous destruction of the distal phalanx of the second toe consistent with osteomyelitis (3) Diabetic toe ulcer Diabetes mellitus type: other specified (including CL) Laterality: right Non-pressure ulcer stage: unspecified non-pressure ulcer stage Qualified Code(s): E13.621 - Other specified diabetes mellitus with foot ulcer; L97.519 - Non-pressure chronic ulcer of other part of right foot with unspecified severity
[2024-04-24] MEDS ORDERED: Nursing to Pharmacy Communication SCH ×2 (06:30→19:15)
[2024-04-24] MEDS: INSULIN ASPART PER UNIT CHARGE SC ONE (06:34)
[2024-04-24 07:13] LABS: Hematocrit (blood only) 28.7 % (42.0-52.0); Hemoglobin 9.8 g/dl (14.0-18.0); Mean Corpuscular Hemoglobin 30.3 pg (25.0-34.0); Mean Corpuscular Hgb Conc 34.1 g/dL (32.0-36.0); Mean Corpuscular Volume 88.9 fL (80.0-100.0); Mean Platelet Volume 10.1 fL (9.4-12.4); Platelet Count 168 K/uL (130-400); RDW Coefficient of Variation 12.1 % (11.5-14.5); RDW Standard Deviation 40.1 fL (36.4-46.3); Red Blood Count 3.23 M/uL (4.70-6.10); White Blood Count 6.07 K/ul (4.8-10.8)
[2024-04-24 07:30] LABS: BUN Creatinine Ratio 15.2 (10-20); Calcium 9.2 mg/dl (8.6-10.3); Chol HDL Ratio 3.5 (0-5); Creatinine Clr Calc Pharmacy 83.1 ml/min; Potassium 4.1 mmol/L (3.5-5.1)
[2024-04-24 07:49] LABS: Ferritin 319.7 ng/ml (8-388)
[2024-04-24 08:04] LABS: Folate (Folic Acid),Ser orPlas 18.97 ng/ml (>5.38)
[2024-04-24] MEDS: amLODIPine BESYLATE 5 MG TAB PO SCH (09:03)
[2024-04-24] MEDS: VALSARTAN 80 MG TAB PO SCH (09:04)
--- NOTE | 2024-04-24 11:49 | Orthopedic Consultation ---
Date of Consultation April 24, 2024 Assessment & Plan (1) Acute osteomyelitis of toe of right foot: Consent obtained to perform right second toe amputation later today with Dr. Flores. Patient is NPO. Dressing that was removed was replaced over the ulcerative area. Dr. Flores will see the patient after his surgical case is finished and meet with the patient & sign his extremity. Supervising Physician Co-Signing Physician Notes I, Dr. Flores, saw and examined the patient and agree with the above findings and plan of care I developed. R 2nd toe osteomyelitis was on suppressive antibiotics which were stopped, patient developed increase drainage and was brought to the hospital and admitted to hospitalist service. PE: R 2nd toe swollen, with non-healing wound at the tip. No active drainage. Plan: R 2nd toe amputation, patient has been NPO, consent signed. Is on IV antibiotics. History of Present Illness Reason for Consultation: Right 2nd toe osteomyelitis Requesting Physician: Dhiraj Flores MD Attending Physician: Lissa Jerry MD History of Present Illness 48-year-old inmate is seen in consultation for right second toe osteomyelitis. Patient states that this has been an ongoing issue since December. He states that he has been on antibiotics, been to the wound care center and has been offloading pressure but continues to have an open area on the plantar surface of the distal toe. He states that he had a similar issue with his left second toe and required amputation in the past. Currently patient denies fever, chills, sweats, nausea, vomiting, diarrhea. He is electing to proceed with surgical invention to have the toe amputated. Allergies Allergy/AdvReac Type Severity Reaction Status Date / Time No Known Allergies Allergy Unverified 04/23/24 07:46 Home Medications Medication Instructions Recorded Confirmed Type aspirin 81 mg tablet,delayed 81 mg PO DAILY ##0 06/15/16 04/23/24 History release brimonidine 0.2 % eye drops 1 drp OPB TID 90 days #15 mL 06/15/16 04/23/24 History latanoprost 0.005 % eye drops 1 drp OPB PM #7.5 mL 06/15/16 04/23/24 History metformin 1,000 mg tablet 1,000 mg PO BID #0 tabs 06/15/16 04/23/24 History timolol 0.5 % eye drops 1 drp OPB BID 60 days #10 mL 06/15/16 04/23/24 History amlodipine 10 mg tablet 10 mg PO DAILY 12/26/23 04/23/24 History atorvastatin 40 mg tablet 40 mg PO HS 12/26/23 04/23/24 History dapagliflozin propanediol 10 mg 10 mg PO DAILY 12/26/23 04/23/24 History tablet dorzolamide 2 % eye drops 1 drp OPB TID 12/26/23 04/23/24 History insulin glargine 100 unit/mL (3 38 unit subcut QAM 12/26/23 04/23/24 History mL) subcutaneous pen insulin regular human 100 unit/mL 2 - 12 sliding scale dose subcut 12/26/23 04/23/24 History injection solution (Novolin R USEASDIRECTD Regular U-100 Insulin) pilocarpine HCl 2 % eye drops 1 drp OPB BID 12/26/23 04/23/24 History valsartan 160 mg tablet 160 mg PO DAILY 12/26/23 04/23/24 History labetalol 200 mg tablet 400 mg PO BID 02/23/24 04/23/24 History mirtazapine 45 mg tablet 45 mg PO HS 04/23/24 04/23/24 History Patient History Medical History Protein in urine Murmur, heart Glaucoma Depressive disorder Osteoarthritis of left knee Toe osteomyelitis, right Social History Smoking Status: Former smoker Hx Alcohol Use: No Hx Substance Use: No Preferred Language: Malagasy Communication Ability: Effective Visual Impairment: Limited Hearing Ability: Normal Leak Patcher Required: No Beliefs That Will Affect Care: Tenriism Tenriism Beliefs: Islamic Current Living Situation: Other Current Living Situation Comment: [facility] current occupational status: unemployed Feels Safe at Home: Yes Diet: regular caffeine: Yes during the past year weight has: increased > 10 lbs Dental Care, Regularly: No Physical Activity Frequency: Daily Assistive Devices: Glasses Review of Systems Review of Systems: All systems reviewed & are unremarkable except as noted in Subjective Physical Exam Physical Exam: Right second toe: Edema extending into the dorsal surface of the foot. There is an open ulceration to the plantar surface of the distal pad of the toe. Patient is unable to detect light sensation to touch over the second toe but is able to detect light sensation to touch of the remaining digits. His peripheral pulses are 1+. Results & Data Vital Signs (Past 12 Hours) Vital Signs Temp Pulse Resp BP Pulse Ox O2 Del Method 04/24/24 07:14 37.2 C 77 16 130/75 97 Room Air Diagnostic Findings Laboratory Results WBC 6.07 K/ul (4.8-10.8) 04/24/24 07:00 RBC 3.23 M/uL (4.70-6.10) L 04/24/24 07:00 Hgb 9.8 g/dl (14.0-18.0) L 04/24/24 07:00 Hct 28.7 % (42.0-52.0) L 04/24/24 07:00 MCV 88.9 fL (80.0-100.0) 04/24/24 07:00 MCH 30.3 pg (25.0-34.0) 04/24/24 07:00 MCHC 34.1 g/dL (32.0-36.0) 04/24/24 07:00 RDW Std Deviation 40.1 fL (36.4-46.3) 04/24/24 07:00 RDW Coeff of Gary 12.1 % (11.5-14.5) 04/24/24 07:00 Plt Count 168 K/uL (130-400) 04/24/24 07:00 MPV 10.1 fL (9.4-12.4) 04/24/24 07:00 Immature Gran % (Auto) 0.6 % 04/23/24 09:30 Neut % (Auto) 68.8 % 04/23/24 09:30 Lymph % (Auto) 17.6 % 04/23/24 09:30 Hale % (Auto) 12.6 % 04/23/24 09:30 Eos % (Auto) 0.0 % 04/23/24 09:30 Baso % (Auto) 0.4 % 04/23/24 09:30 Neut # (Auto) 5.78 K/uL (1.40-6.50) 04/23/24 09:30 Lymph # (Auto) 1.48 K/uL (1.20-3.40) 04/23/24 09:30 Hale # (Auto) 1.06 K/uL (0.11-0.59) H 04/23/24 09:30 Eos # (Auto) 0.00 K/uL (0.00-0.50) 04/23/24 09:30 Baso # (Auto) 0.03 K/uL (0.00-0.20) 04/23/24 09:30 Immature Gran # (Auto) 0.05 K/uL (0.01-0.20) 04/23/24 09:30 ESR 70 mm/hr (0-15) H 04/23/24 09:30 Sodium 137 mmol/L (136-145) 04/24/24 07:00 Potassium 4.1 mmol/L (3.5-5.1) 04/24/24 07:00 Chloride 104 mmol/L (98-107) 04/24/24 07:00 Carbon Dioxide 23 mmol/L (21-32) 04/24/24 07:00 Anion Gap 10 (3-11) 04/24/24 07:00 BUN 23 mg/dl (6-23) 04/24/24 07:00 Creatinine 1.51 mg/dl (0.6-1.4) H D 04/24/24 07:00 Est Cr Clr Drug Dosing 83.1 ml/min 04/24/24 07:00 eGFR 56.27 04/24/24 07:00 BUN/Creatinine Ratio 15.2 (10-20) 04/24/24 07:00 Glucose 138 mg/dl (70-99(Fasting)) H 04/24/24 07:00 POC Glucose 156 mg/dl (70-99) H 04/24/24 11:49 Calcium 9.2 mg/dl (8.6-10.3) 04/24/24 07:00 Iron 26 mcg/dl (35-175) L 04/24/24 07:00 TIBC 210 mcg/dl (250-450) L 04/24/24 07:00 Unsaturated IBC 184 mcg/dl (155-355) 04/24/24 07:00 Transferrin % Sat 12 % (20-50) L 04/24/24 07:00 Ferritin 319.7 ng/ml (8-388) 04/24/24 07:00 Total Bilirubin 0.7 mg/dl (0.2-1.0) 04/23/24 09:30 AST 17 U/L (13-39) 04/23/24 09:30 ALT 16 U/L (7-52) 04/23/24 09:30 Alkaline Phosphatase 48 U/L (34-104) 04/23/24 09:30 C-Reactive Protein 10.10 mg/dl (0-0.5) H 04/23/24 09:30 Total Protein 7.4 gm/dl (6.0-8.3) 04/23/24 09:30 Albumin 3.8 gm/dl (3.4-5.0) 04/23/24 09:30 Globulin 3.6 gm/dl (2.5-4.0) 04/23/24 09:30 Albumin/Globulin Ratio 1.1 (0.9-2) 04/23/24 09:30 Triglycerides 153 mg/dl (0-150) H 04/24/24 07:00 Cholesterol 105 mg/dl (0-200) 04/24/24 07:00 LDL Cholesterol, Calc 44 mg/dl 04/24/24 07:00 VLDL Cholesterol, Calc 31 mg/dl (0-30) H 04/24/24 07:00 HDL Cholesterol 30 mg/dl 04/24/24 07:00 Cholesterol/HDL Ratio 3.5 (0-5) 04/24/24 07:00 Vitamin B12 209 pg/ml (180-914) 04/24/24 07:00 Folate 18.97 ng/ml (>5.38) 04/24/24 07:00 Nasal Screen MRSA (PCR) Negative (Negative) 04/23/24 Unknown Impressions Toe X-Ray 04/23/24 09:19 XR toe(s) RT min 2V CLINICAL HISTORY: wound right 2nd toe, increased pain/wound size COMPARISON: Right second toe radiographs December 06, 2023. Right foot MRI February 14, 2024. FINDINGS: Marked soft tissue swelling of the right second toe is noted. Soft tissue gas extends to the distal tuft of the right second distal phalanx. Bony erosion of the distal phalanx of the second toe has developed. A lucency within the distal phalanx suggests a fracture which was shown on prior MRI. No additional sites of bony erosion are identified. IMPRESSION: Right second toe wound with associated marked soft tissue tissue swelling. Interval development of bony erosion of the right second distal phalanx consistent with acute osteomyelitis. Redemonstration of a right second distal phalangeal fracture, as shown on previous MRI. ACT 112: Negative or not required by law. Electronically signed by: John Iglesias M.D. 04/23/2024 10:02 AM Duplex Scan Lower Extremity Artery 04/23/24 13:15 RIGHT LOWER EXTREMITY ARTERIAL DOPPLER ULTRASOUND CLINICAL HISTORY: osteomyelitis, decreased pulses COMPARISON STUDY: No previous studies for comparison. TECHNIQUE: Color and duplex Doppler sonography of the arterial system of the right lower extremity was performed. FINDINGS: Mild to moderate atherosclerotic plaque within the right lower extremity is noted. No elevated velocities were identified. There is triphasic flow within the right common femoral, superficial femoral and popliteal arteries. Biphasic flow was noted within the right calf vessels. No vessel occlusion was identified. IMPRESSION: 1. Mild to moderate atherosclerotic plaque within the right lower extremity without sonographic evidence for hemodynamically significant stenosis. 2. Patent right lower extremity vessels. ACT 112: Negative or not required by law. Electronically signed by: John Iglesias M.D. 04/23/2024 3:03 PM
--- NOTE | 2024-04-24 12:34 | Pharmacy Report ---
Pharmacy Glycemic Short Note 2 - Date of Service April 24, 2024 - Glycemic Short BSG Results (Last 24 hours): 04/23/24 04/23/24 04/24/24 16:34 20:30 05:49 Glucose POC Glucose 153 H 166 H 122 H 04/24/24 04/24/24 07:00 11:49 Glucose 138 H POC Glucose 156 H OUTPATIENT ANTIDIABETIC REGIMEN: * Lantus 38 units SQ q AM * Novolin R sliding scale (2-12 units)/dose * metformin 1000mg po bid * Farxiga 10mg po daily HbA1c ordered for 04/24 with morning labs ASSESSMENT: 04/24 * Patient received 20 units of basal last night, fasting at goal, patient NPO today for right second toe amputation later today with Dr. Flores. * Will place basal on scale for tonight's dose, and re-evaluate tomorrow, moving basal back to AM dosing like outpatient regimen. 04/23 * 48 year old male admitted for osteomyelitis of the toe of the right foot. He already completed a course of vancomycin and Bactrim earlier this month but presents with worsening pain, drainage, and worsening wound. He is currently ordered cefepime and daptomycin. * His BSG on presentation this morning was 206mg/dL. Pharmacy was consulted for glycemic management while he is admitted. * BSG at dinner time was 153mg/dL. Will add a Lantus scale for tonight (10-20 units) x 1. * Weight based bolus insulin dosing with a stress of 2 will be started at dinner time today. * SCr today is 1.82 (baseline unclear) PLAN FOR INPATIENT GLYCEMIC CONTROL: * Hold outpatient diabetes medications * Basal insulin * Lantus scale (15 units for BSG < 140; 30 units for BSG > or = to 140) tonight at HS, then will reassess dose in the morning. * Bolus insulin * NovoLog per scale ACHS or Q6hrs while NPO * Goal Range: Low 110 mg/dL - High 140 mg/dL * Correction Factor: 25 mg/dL/unit * Nutritional / Prandial insulin per carb ratio of 1 unit per 8 grams CHO consumed
[2024-04-24] MEDS: INSULIN ASPART PER UNIT CHARGE SC SCH ×2 (13:13→21:03)
[2024-04-24] MEDS: ASPIRIN 81 MG ECTAB PO SCH (13:16)
--- NOTE | 2024-04-24 13:28 | Anesthesiology Consultation ---
Date of Service April 24, 2024 Assessment & Plan Chart Review Chart Review: Acceptable Risk for Surgery and Patient NOT seen in Pre Admission Testing History Surgery Operation Date: 04/24/24 08:45 Proposed Procedures p Right 2nd Toe Amputation - Dhiraj Flores MD Height/Weight Height: 6 ft 3 in Weight: 121.5 kg Allergies Allergy/AdvReac Type Severity Reaction Status Date / Time No Known Allergies Allergy Unverified 04/23/24 07:46 Medications Home Medications Medication Instructions Recorded Confirmed Last Taken aspirin 81 mg tablet,delayed 81 mg PO DAILY ##0 06/15/16 04/23/24 Unknown release brimonidine 0.2 % eye drops 1 drp OPB TID 90 days #15 mL 06/15/16 04/23/24 Unknown latanoprost 0.005 % eye drops 1 drp OPB PM #7.5 mL 06/15/16 04/23/24 Unknown metformin 1,000 mg tablet 1,000 mg PO BID #0 tabs 06/15/16 04/23/24 Unknown timolol 0.5 % eye drops 1 drp OPB BID 60 days #10 mL 06/15/16 04/23/24 Unknown amlodipine 10 mg tablet 10 mg PO DAILY 12/26/23 04/23/24 04/16/24 atorvastatin 40 mg tablet 40 mg PO HS 12/26/23 04/23/24 Unknown dapagliflozin propanediol 10 mg 10 mg PO DAILY 12/26/23 04/23/24 03/30/24 tablet dorzolamide 2 % eye drops 1 drp OPB TID 12/26/23 04/23/24 Unknown insulin glargine 100 unit/mL (3 38 unit subcut QAM 12/26/23 04/23/24 04/18/24 mL) subcutaneous pen insulin regular human 100 unit/mL 2 - 12 sliding scale dose subcut 12/26/23 04/23/24 04/15/24 injection solution (Novolin R USEASDIRECTD Regular U-100 Insulin) pilocarpine HCl 2 % eye drops 1 drp OPB BID 12/26/23 04/23/24 Unknown valsartan 160 mg tablet 160 mg PO DAILY 12/26/23 04/23/24 Unknown labetalol 200 mg tablet 400 mg PO BID 02/23/24 04/23/24 Unknown mirtazapine 45 mg tablet 45 mg PO HS 04/23/24 04/23/24 04/18/24 Active Medications Generic Name Dose Route Start Last Admin Trade Name Johanny COHN Reason Stop Dose Admin Amlodipine Besylate 10 mg 04/24/24 09:00 04/24/24 09:03 Amlodipine Besylate 5 Mg Tab PO 05/24/24 08:59 10 mg DAILY JUSTIN Administration Aspirin 81 mg 04/24/24 09:00 04/24/24 13:16 Aspirin 81 Mg Ectab PO 05/24/24 08:59 Not Given DAILY JUSTIN Brimonidine Tartrate 1 drops 04/23/24 15:00 04/24/24 06:31 Brimonidine Tartrate 0.2% 5ml OPB 05/23/24 14:59 1 drops Q8H JUSTIN Administration Dorzolamide HCl 1 drops 04/23/24 16:00 04/24/24 13:14 Dorzolamide Hcl 2% Oph Soln 10 Ml Btl OPB 05/23/24 15:59 1 drops TID JUSTIN Administration Cefepime HCl 2,000 mg in 20 mls @ 5 mls/min 04/23/24 16:00 04/24/24 09:11 Maxipime 2000mg IV 06/04/24 15:59 5 mls/min Q8H JUSTIN Administration Protocol Daptomycin 600 mg/ Syringe 12 mls @ 6 mls/min 04/23/24 20:00 04/23/24 21:10 IV 06/04/24 19:59 6 mls/min Q24H JUSTIN Administration Protocol Insulin Aspart 0 units 04/24/24 12:00 04/24/24 13:13 Insulin Aspart Per Unit Charge SC 05/23/24 16:29 1 units Q6 JUSTIN Administration Labetalol HCl 400 mg 04/23/24 21:00 04/24/24 09:03 Labetalol Hcl 200 Mg Tab PO 05/23/24 20:59 400 mg BID JUSTIN Administration Latanoprost 1 drops 04/23/24 21:00 04/23/24 21:11 Latanoprost 0.005% Op Soln 2.5 Ml Btl OPB 05/23/24 20:59 1 drops PM JUSTIN Administration Mirtazapine 45 mg 04/23/24 21:00 04/23/24 21:12 Mirtazapine Soltab 15 Mg PO 05/23/24 20:59 45 mg HS JUSTIN Administration Pilocarpine HCl 1 drops 04/23/24 21:00 04/24/24 09:04 Pilocarpine Hcl 2% Op Soln 15 Ml Btl OPB 05/23/24 20:59 1 drops BID JUSTIN Administration Timolol Maleate 1 drops 04/23/24 21:00 04/24/24 09:04 Timolol Maleate 0.5% Op Soln 5 Ml Btl OPB 05/23/24 20:59 1 drops BID JUSTIN Administration Valsartan 160 mg 04/24/24 09:00 04/24/24 09:04 Valsartan 80 Mg Tab PO 05/24/24 08:59 160 mg DAILY JUSTIN Administration Past Medical History Medical History Protein in urine Murmur, heart Glaucoma Depressive disorder Osteoarthritis of left knee Toe osteomyelitis, right Social History Smoking Status: Former smoker Hx Alcohol Use: No Hx Substance Use: No Physical Exam Vital Signs Last Vital Signs Temp 37.2 C 04/24/24 07:14 Pulse 77 04/24/24 07:14 Resp 16 04/24/24 07:14 BP 130/75 04/24/24 07:14 Pulse Ox 97 04/24/24 07:14 O2 Del Method Room Air 04/24/24 07:14 Testing Laboratory Results 04/24/24 07:00 04/24/24 07:00 04/24/24 04/24/24 11:49 05:49 POC Glucose 156 H 122 H
[2024-04-24] MEDS ORDERED: PROMETHAZINE HCL 6.25 MG in SODIUM CHLORIDE 0.9% 50 ML IV PRN (15:21)
[2024-04-24] MEDS ORDERED: NALOXONE HCL 0.4 MG/1 ML VIAL/CARP IV PRN (15:21)
[2024-04-24] MEDS ORDERED: ATROPINE SULFATE 0.1 MG/ML 10ML SYR IV PRN (15:21)
[2024-04-24] MEDS ORDERED: ePHEDrine sulfate 50 MG/ML AMP IV PRN (15:21)
[2024-04-24] MEDS ORDERED: FLUMAZENIL 0.1 MG/1 ML 10 ML VIAL IV PRN (15:21)
[2024-04-24] MEDS ORDERED: LABETALOL HCL IV 5 MG/ML 20ML IV PRN (15:21)
[2024-04-24] MEDS ORDERED: ONDANSETRON INJ 2 MG/ML 2 ML VIAL IV PRN (15:21)
[2024-04-24] MEDS ORDERED: HYDROmorphone INJ 1 MG/ML SYRINGE IV PRN (15:21)
[2024-04-24] MEDS ORDERED: fentaNYL citrate PF 100 MCG/2 ML VIAL IV PRN (15:21)
--- NOTE | 2024-04-24 15:21 | Communication Note ---
Date of Service: April 24, 2024 [id number] @ 69, NS ST & T wave changes
[2024-04-24] MEDS ORDERED: fentaNYL citrate PF 100 MCG/2 ML VIAL ONE (15:37)
[2024-04-24] MEDS ORDERED: MIDAZOLAM HCL 1 MG/ML 2ML VIAL ONE (15:37)
[2024-04-24] MEDS ORDERED: LIDOCAINE 2% 2 ML VIAL/AMP(20MG/ML) INFIL ONE (15:40)
[2024-04-24] MEDS ORDERED: PROPOFOL IV EMULSION 10 MG/ML 20 ML VIAL IV ONE ×7 (15:40→16:41)
[2024-04-24] MEDS ORDERED: KETAMINE HCL 10MG/ML SYR ONE (16:13)
[2024-04-24] MEDS ORDERED: ONDANSETRON INJ 2 MG/ML 2 ML VIAL ONE (16:20)
[2024-04-24] MEDS: BUPIVACAINE 0.5 % 5 MG/1 ML MPF 30ML VIAL ONE (16:48)
[2024-04-24] MEDS: LIDOCAINE 1%/EPINEPHRINE 1:100,000 50 ML VIAL ONE (16:48)
--- NOTE | 2024-04-24 16:52 | Post Operative Brief Note ---
Immediate Post Op Note Date of Surgery April 24, 2024 Pre & Post Diagnosis Operation Date: 04/24/24 08:45 Pre-Op Diagnosis: Osteomyelitis right 2nd toe. Post-Op Diagnosis: Osteomyelitis right 2nd toe. I identified the patient and participated in the time-out.: Yes Procedure Operation Date: 04/24/24 08:45 Actual Procedures p Right 2nd Toe Amputation(Right) - Dhiraj Flores MD Surgeon Dhiraj Flores MD [employer] Teacher Jeet Hughes PA-C (No fellow avail) Estimated Blood Loss 18 Findings Consistent with Post-Op Diagnosis Fluids 600 cc Specimens R 2nd toe Cx Anesthesia Type MAC Complications none
--- NOTE | 2024-04-24 16:53 | Operative Report ---
Post Operative Report Pre & Post Diagnosis Operation Date: 04/24/24 08:45 Pre-Op Diagnosis: Osteomyelitis right 2nd toe. Post-Op Diagnosis: Osteomyelitis right 2nd toe. I identified the patient and participated in the time-out.: Yes Procedure Operation Date: 04/24/24 08:45 Actual Procedures p Right 2nd Toe Amputation(Right) - Dhiraj Flores MD Surgeon Dhiraj Flores MD Banquet Houseperson Jeet Hughes PA-C (No fellow avail) Estimated Blood Loss 18 Findings See Below R 2nd toe, with non-healing ulcer, probed down to distal phalanx Fluids 600 cc Specimens Right 2nd toe for pathology Right 2nd toe for Cx Anesthesia Type MAC Complications none Indications The patient is a 48 year old male with a painful right 2nd toe osteomylitis, that has not responded to conservative treatment. The patient understands the risks of surgery, which include but are not limited to: bleeding, infection, re- operation, damage to nerves and arteries, and continued pain. The patient understands all of these instructions and explanations, all of their questions have been satisfactorily addressed. The patient has elected to proceed with surgery for right 2nd toe amputation and the informed consent was signed. Description of Procedure The patient was taken to the Operating Room and placed in the supine position on the operating table. After a multidisciplinary time-out was performed iden tifying my initials on the right lower leg as the correct and operative limb, the patient agreed. The patient has been on a regime of antibiotics since being admitted. The right leg was prepped and draped in the usual Orthopaedic sterile fashion. After appropriate sedation, the planned racquet incision was marked around the right 2nd toe, approximately 4 cm in length. The incision was injected with a combination of 1% Lidocaine with epi and 0.5% Marcaine plain for a total of 10 cc. After the local anesthetic had taken affect, The planned incision was carried down to the proximal phalanx with scalpel and cautery, through viable clean soft tissue. The flexor and extensor tendon were released with a scalpel. The capsule of the 2nd MCP joint was incised and the right 2nd toe was compl etely excised. The right 2nd toe non-healing ulcer, with devitalized soft tissue was cultured. The opening was the size of the culture swab.The wound was copiously irrigated. The skin was closed with 3-0 Prolene. The incision was covered with Xeroform, 4x4's, Kerlix and an ESTUARDO. The sponge and needle counts were correct. The patient tolerated the procedure well and was transported to recovery. POST-OP INSTRUCTIONS: Patient was re-admitted to the hospitalist service. ID consult will be obtained. Patient is WBAT in post-op shoe. Continue IV antibiotics. Continie pain control. I attest to the content of the Intraoperative Record and any orders documented therein. Any exceptions are noted below.
[2024-04-24 17:17] LABS: Estimated Average Glucose 157 mg/dl; Hemoglobin A1C 7.1 % (4.5-5.6)
--- NOTE | 2024-04-24 17:33 | Anesthesiology Progress Note ---
Date of Service April 24, 2024 Anesthesia Post Procedure Vital Signs Vital Signs: Temp Pulse Pulse Resp BP BP Pulse Ox 04/24/24 17:30 36.5 C 66 16 136/83 98 04/24/24 17:20 70 16 144/84 H 95 04/24/24 17:10 73 12 119/75 95 04/24/24 17:00 36.4 C L 70 16 108/63 100 04/24/24 14:42 36.8 C 72 18 141/79 H 98 04/24/24 14:15 36.8 C 70 16 133/73 98 04/24/24 07:14 37.2 C 77 16 130/75 97 04/23/24 20:32 37.0 C 69 14 128/78 96 O2 Del Method O2 Flow Rate 04/24/24 17:30 Room Air 04/24/24 17:20 Room Air 04/24/24 17:10 Room Air 04/24/24 17:00 Oxymask 4 04/24/24 14:42 Room Air 04/24/24 14:15 Room Air 04/24/24 07:14 Room Air 04/23/24 20:32 Room Air Transfer of Care Handoff Completed per policy Notes Mental Status: alert / awake / arousable Patient Amnestic to Procedure: Yes Nausea / Vomiting: adequately controlled Pain: adequately controlled Airway Patency, RR, SpO2: stable & adequate BP & HR: stable & adequate Hydration State: stable & adequate Anesthetic Complications: no major complications apparent
--- NOTE | 2024-04-24 18:03 | Electrocardiogram Report ---
Test Reason : Blood Pressure : */* mmHG Vent. Rate : 69 BPM Atrial Rate : 69 BPM P-R Int : 174 ms QRS Dur : 96 ms QT Int : 370 ms P-R-T Axes : 43 14 15 degrees QTcB Int : 396 ms Normal sinus rhythm Normal ECG No previous ECGs available Confirmed by Harris Gibbons ([id number]) on 04/24/2024 6:02:44 PM Referred By: Yohana ZAMUDIO Confirmed By: Harris Gibbons
--- NOTE | 2024-04-24 18:45 | Hospitalist Progress Note ---
Date of Service April 24, 2024 Assessment & Plan (1) Acute osteomyelitis of toe of right foot: Plan: Patient with known right second distal phalanx osteomyelitis, Completed course of vancomycin and Bactrim in early April Here w/ worsening pain, drainage, and increased wound measurements from wound care clinic ESR 70, CRP 10.10 Foot x-ray confirming osteomyelitis of second distal phalanx MRI 02/14/2024 showed concern for osteomyelitis Wound culture 03/21 showing Citrobacter Koseri, resistant to quinolones, and MRSA Arterial Doppler RLE normal Now s/p right second toe amputation on 04/24. Unclear if residual cellulitis as I was unable to see foot/toe prior to surgery today Continue Daptomycin and Cefepime for now, ID consult pending hold statin while on Dapto Post op care as per Ortho Follow CBC, BMP (2) CKD (chronic kidney disease) stage 3, GFR 30-59 ml/min: Plan: with ALEKSANDRA on CKD stage 3 here, coordinator cardiopulmonary services 1.82 on admission, possibly prerenal from infection? Baseline coordinator cardiopulmonary services around 1.5 and now back to baseline continue valsartan follow BMP renally dose meds (3) B12 deficiency anemia: Plan: Chronic normocytic anemia, hgb baseline 10 Fe studies show low transferrin sat at 12%, ferritin not low but acute phase reactant in setting of OM B12 low at 209--> replace with IM B12 1000mcg x 1 then po B12 1000 mcg daily Folate normal check TSH in AM Likely also anemia of CKD (4) Iron deficiency anemia: Plan: as above start FeSO4 325mg po daily needs GI workup as outpt (5) Hypertension: Plan: BPs controlled Continue home medications - amlodipine, labetalol, valsartan (6) Diabetes type 2, controlled: Plan: Controlled on Metformin, dapagliflozin, and Insulin at home A1C here well controlled at 7.1% pharmacy glycemic consult in place (7) Hyperlipidemia: Plan: lipid panel acceptable continue home baby aspirin hold home statin with daptomycin use Plan Chronic stable diagnoses: Glaucoma - continue home eye drops Mood disorder-continue mirtazapine VTE ppx: SCDs Code status: Full Dispo: continued stay med/surg Admission and Anticipated Discharge Date Admission Date: April 23, 2024 Subjective Pt seen after return from toe amputation. Denies pain, no CP or SOB, no nausea. No complaints. Physical Exam Constitutional: WD/WN, vitals as above Respiratory: normal respiratory effort, lungs clear to auscultation Cardiovascular: RRR, no murmur, no edema Gastrointestinal (Abdomen): normal bowel sounds, soft, nontender, no hepatosplenomegaly Musculoskeletal: right foot in dressing Psychiatric: A+Ox3, euthymic affect Results & Data Results & Data Vital Signs (Past 12 Hours) Vital Signs Temp Pulse Pulse Resp BP BP Pulse Ox 04/24/24 18:30 36.8 C 68 16 136/80 98 04/24/24 17:59 36.8 C 71 16 130/75 97 04/24/24 17:30 36.5 C 66 16 136/83 98 04/24/24 17:20 70 16 144/84 H 95 04/24/24 17:10 73 12 119/75 95 04/24/24 17:00 36.4 C L 70 16 108/63 100 04/24/24 14:42 36.8 C 72 18 141/79 H 98 04/24/24 14:15 36.8 C 70 16 133/73 98 04/24/24 07:14 37.2 C 77 16 130/75 97 O2 Del Method O2 Flow Rate 04/24/24 18:30 Room Air 04/24/24 17:59 Room Air 04/24/24 17:30 Room Air 04/24/24 17:20 Room Air 04/24/24 17:10 Room Air 04/24/24 17:00 Oxymask 4 04/24/24 14:42 Room Air 04/24/24 14:15 Room Air 04/24/24 07:14 Room Air Laboratory Results CBC, BMP, iron studies, B12, folate, HgbA1C, wound cxs reviewed PG Care Time/CCT Total # of Minutes Spent Total Time Spent with Patient: Total time spent is greater than 50% in coordination of care (as documented) at patient's floor/unit and/or counseling patient: Coding Level of Care Code 81963 SUB INP/OBS CARE 2/35MIN Diagnoses Acute osteomyelitis of toe of right foot M86.171 CKD (chronic kidney disease) stage 3, GFR 30-59 ml/min N18.30 B12 deficiency anemia D51.9 Iron deficiency anemia D50.9 Hypertension I10 Diabetes type 2, controlled E11.9 Hyperlipidemia E78.5
[2024-04-24] MEDS: LANTUS PER UNIT CHARGE SC SCH (21:04)
[2024-04-24] MEDS: CYANOCOBALAMIN 1000 MCG/ML VIAL IM ONE (21:07)
[2024-04-24] MEDS: ACETAMINOPHEN 325 MG TAB PO PRN (21:22)
[2024-04-25 06:16] LABS: Hematocrit (blood only) 28.8 % (42.0-52.0); Hemoglobin 9.6 g/dl (14.0-18.0); Mean Corpuscular Hemoglobin 29.5 pg (25.0-34.0); Mean Corpuscular Hgb Conc 33.3 g/dL (32.0-36.0); Mean Corpuscular Volume 88.6 fL (80.0-100.0); Mean Platelet Volume 10.6 fL (9.4-12.4); Platelet Count 171 K/uL (130-400); RDW Coefficient of Variation 12.1 % (11.5-14.5); RDW Standard Deviation 39.3 fL (36.4-46.3); Red Blood Count 3.25 M/uL (4.70-6.10); White Blood Count 5.37 K/ul (4.8-10.8)
[2024-04-25 06:35] LABS: BUN Creatinine Ratio 15.9 (10-20); Calcium 9.1 mg/dl (8.6-10.3); Creatinine Clr Calc Pharmacy 76.5 ml/min; Potassium 4.1 mmol/L (3.5-5.1)
[2024-04-25] MEDS: CYANOCOBALAMIN (B-12) 500 MCG TABLET PO SCH (09:21)
[2024-04-25] MEDS: FERROUS SULFATE 325 MG TAB PO SCH (09:21)
--- NOTE | 2024-04-25 10:34 | Pharmacy Report ---
Pharmacy Glycemic Short Note 2 - Date of Service April 25, 2024 - Glycemic Short BSG Results (Last 24 hours): 04/24/24 04/24/24 04/24/24 11:49 17:03 20:55 Glucose POC Glucose 156 H 126 H 137 H 04/25/24 04/25/24 05:16 07:24 Glucose 123 H POC Glucose 123 H OUTPATIENT ANTIDIABETIC REGIMEN: * Lantus 38 units SQ q AM * Novolin R sliding scale (2-12 units)/dose * metformin 1000mg po bid * Farxiga 10mg po daily HbA1c ordered for 04/24 with morning labs ASSESSMENT: 04/25 * Antonio recieved 23 units of insulin yesterday (15 were basal) * Fasting BSG within goal range this AM, will give basal insulin this afternoon to try and transition back to AM dosing like outpatient regimen * No change to NovoLog parameters at this time, continues on daptomycin/cefepime. 04/24 * Patient received 20 units of basal last night, fasting at goal, patient NPO today for right second toe amputation later today with Dr. Flores. * Will place basal on scale for tonight's dose, and re-evaluate tomorrow, moving basal back to AM dosing like outpatient regimen. 04/23 * 48 year old male admitted for osteomyelitis of the toe of the right foot. He already completed a course of vancomycin and Bactrim earlier this month but presents with worsening pain, drainage, and worsening wound. He is currently ordered cefepime and daptomycin. * His BSG on presentation this morning was 206mg/dL. Pharmacy was consulted for glycemic management while he is admitted. * BSG at dinner time was 153mg/dL. Will add a Lantus scale for tonight (10-20 units) x 1. * Weight based bolus insulin dosing with a stress of 2 will be started at dinner time today. * SCr today is 1.82 (baseline unclear) PLAN FOR INPATIENT GLYCEMIC CONTROL: * Hold outpatient diabetes medications * Basal insulin * Lantus scale 15 units this afternoon then QAM afterwards * Bolus insulin * NovoLog per scale ACHS or Q6hrs while NPO * Goal Range: Low 110 mg/dL - High 140 mg/dL * Correction Factor: 25 mg/dL/unit * Nutritional / Prandial insulin per carb ratio of 1 unit per 8 grams CHO consumed
[2024-04-25] MEDS: oxyCODONE HCL IR 5 MG TAB (IMMEDIATE RELEASE) PO PRN (10:48)
--- NOTE | 2024-04-25 10:53 | Orthopedic Progress Note ---
Date of Service April 25, 2024 Assessment & Plan (1) Acute osteomyelitis of toe of right foot: Plan: Postop day 1 status post amputation right second toe Patient doing well this morning. No complaints. Preliminary culture obtained yesterday positive for Citrobacter koseri. Awaiting ID consult. Dressing is dry and intact. Spoke with Dr. Flores will leave in place today. Contact us if dressing becomes soiled. Coordinate outpatient follow up. Weightbear as tolerated with post op shoe Will coordinate 1 week and 2 week follow up appointments in the clinic. Admission and Anticipated Discharge Date Admission Date: April 23, 2024 Supervising Physician Co-Signing Physician Notes I, Dr. Flores, saw and examined the patient and agree with the above findings and plan of care I developed. PE: Dressing clean, dry, intact. Subjective Patient seen in bed this morning. He denies any complaints at this time. no chest pain, shortness of breath, calf or leg pain. He has not noticed any drainage through his dressing on his right foot. Physical Exam Constitutional: Resting comfortably laying in bed. In no distress. Cardiovascular: Right PT pulse 2+ Musculoskeletal: Right lower extremity: Dressing is in place over the foot extending onto the ankle. The dressing is dry and the gauze underneath the Nicolas wrap is also dry. There is no swelling about the extremity. No calf or medial thigh tenderness. Able to grossly move toes Skin: [place], warm, dry Neurologic: No focal deficits Results & Data Vital Signs (Past 12 Hours) Vital Signs Temp Pulse Pulse Resp BP Pulse Ox O2 Del Method 04/25/24 07:26 98.8 F 70 16 121/74 96 Room Air 04/25/24 04:05 97.7 F 77 14 144/69 H 95 Room Air 04/24/24 23:44 98.4 F 63 14 119/67 96 Room Air Laboratory Results 04/24/24 16:36 Gram Stain - Final Toe,Right Second Aerobic and Anaerobic Culture - Preliminary Citrobacter koseri Spec: [id number] Collected: 04/24/24 Received: 04/24/24-[address]: Dhiraj Flores MD Copy To: Riley Malin MD Source: Toe,Right Second OV Order: Ordered: Aer/Sofy Cult/Sm Comments: Comment Culture set #1 Right 2nd toe. Procedure Result Verified Site Gram Stain Final 04/24/24-183 Gram Stain Result Few WBCs Seen Rare Gram Positive Cocci Rare Gram Negative Bacilli Aero/Sofy Cult Preliminary 04/25/24-0904 Organism 1 Citrobacter koseri Quantity Moderate Sens Sensitivities to Follow +MixWound Plus Low Counts of Probable Skin Kalina 04/25/24 04/25/24 04/24/24 07:24 05:16 20:55 WBC 5.37 RBC 3.25 L Hgb 9.6 L Hct 28.8 L MCV 88.6 MCH 29.5 MCHC 33.3 RDW Std Deviation 39.3 RDW Coeff of Gary 12.1 Plt Count 171 MPV 10.6 Sodium 136 Potassium 4.1 Chloride 104 Carbon Dioxide 23 Anion Gap 9 BUN 26 H Creatinine 1.64 H Est Cr Clr Drug Dosing 76.5 eGFR 50.96 BUN/Creatinine Ratio 15.9 Glucose 123 H POC Glucose 123 H 137 H Estimat Average Glucose Hemoglobin A1c Calcium 9.1 04/24/24 04/24/24 04/24/24 17:03 11:49 07:00 WBC RBC Hgb Hct MCV MCH MCHC RDW Std Deviation RDW Coeff of Gary Plt Count MPV Sodium Potassium Chloride Carbon Dioxide Anion Gap BUN Creatinine Est Cr Clr Drug Dosing eGFR BUN/Creatinine Ratio Glucose POC Glucose 126 H 156 H Estimat Average Glucose 157 Hemoglobin A1c 7.1 H Calcium
[2024-04-25] MEDS: LANTUS PER UNIT CHARGE SC SCH (12:14)
--- NOTE | 2024-04-25 13:24 | Infectious Disease Consult ---
Date of Consultation April 25, 2024 Assessment & Plan (1) Acute osteomyelitis of toe of right foot: (2) Diabetes type 2, controlled: Plan ID Problem List: 1. R 2nd toe osteomyelitis s/p R 2nd toe amputation on 04/24. 04/23 wound Cx + MRSA and Citrobacter koseri 2. T2DM 3. Incarcerated status Impression: Antonio Iglesias is a 48-year-old man, currently incarcerated, with history of T2DM, HTN, glaucoma, with known osteomyelitis of the R 2nd distal phalanx (previously s/p vancomycin and Bactrim reportedly from 12/2023), who presents from wound care to [facility] on 04/23 with worsening R 2nd toe wound, now s/p R 2nd toe amputation on 04/24. ID is consulted for R 2nd toe osteomyelitis. He has a longstanding R 2nd toe wound with known osteomyelitis of his right second distal phalanx. He has followed with ortho and wound care for the past few months. He was recently on a course of Bactrim + vancomycin (per wound notes, from December to early March). He was intended to see [facility] clinic in March however this was rescheduled to May. Prior wound Cx from 12/26/23 grew Citrobacter koseri, and wound Cx from 03/21 grew MRSA and Citrobacter koseri. He presented to [facility] on 04/23 with increased pain and purulent drainage from the wound. No fevers or chills. The ulcer was noted to probe down to the patients distal phalanx. Upon presentation, VS T36.9 BP 136/76 HR 81 SpO2 96% on RA. Labs showed WBC 8.4 Cr 1.82 ESR 70 CRP 10.10. 04/13 R toe X-ray c/w R 2nd distal phalanx osteomyelitis. Discussion 04/23 wound Cx + MRSA and Citrobacter koseri. Now s/p R 2nd toe amputation on 04/24; Cx thus far with Citrobacter koseri and surgical pathology pending. Per OR report, capsule of 2nd MCP joint was incised, R 2nd toe completely excised. Discussed with Dr. Flores on 04/25 at this time suspecting that the bony infection was removed with amputation, however out of caution would prefer to wait for path and if any uncertainty may favor a longer (6-week course, rather than 2-week course) of antibiotics. Would continue daptomycin given pt with known recent MRSA infection of the toe and wound Cx from 04/23 + MRSA. Citrobacter koseri does not harbor a chromosomal ampC (unlike Citrobacter freundii) so can use ceftriaxone. If pathology without residual osteomyelitis, would be reasonable to treat with a 14-day course to target SSTI (often with PO abx). If any residual osteomyelitis is ultimately seen on pathology (at the proximal margins), or positive Cx from bony margins, pt may benefit from longer course (e.g., 6-week course of abx, likely majority if not all IV). Recommendations: - Continue IV daptomycin - Change to ceftriaxone 2g IV q24h - F/u 04/24 OR pathology - Ensure close follow up with primary care and surgery - Agree with referral to local ID clinic for follow-up, if able ID will continue to follow. Adore Anderson MD, S Infectious Diseases [facility] ID Connect direct line: [phone] Consultation Information This patient recommendation is based on a telemedicine consult request which was completed asynchronously through chart review and information provided by the primary physician. The patient was not seen or examined today. The evaluation is consultative in nature and all patient care and treatment decisions can either be accepted or rejected by the patient's primary hospital-based treating physician using their own independent medical judgment for their patient. Labor Expediter contact information: Please call [facility] Connect Call Center [phone]. (Phone Number For Physician Use Only) Time Spent Reviewing Chart: 31+ minutes History of Present Illness Reason for Consultation: R 2nd toe osteomyelitis. Attending Physician: Lissa Jerry MD History of Present Illness PLEASE NOTE: E-consult was performed for this visit given limited telepresenter availability today. Antonio Iglesias is a 48-year-old man, currently incarcerated, with history of T2DM, HTN, glaucoma, with known osteomyelitis of the R 2nd distal phalanx (previously s/p vancomycin and Bactrim reportedly from 12/2023), who presents from wound care to [facility] on 04/23 with worsening R 2nd toe wound, now s/p R 2nd toe amputation on 04/24. ID is consulted for R 2nd toe osteomyelitis. He has a longstanding R 2nd toe wound with known osteomyelitis of his right second distal phalanx. He has followed with ortho and wound care for the past few months. He was recently on a course of Bactrim + vancomycin (per wound notes, from December to early March). He was intended to see [facility] clinic in March however this was rescheduled to May. Prior wound Cx from 12/26/23 grew Citrobacter koseri, and wound Cx from 03/21 grew MRSA and Citrobacter koseri. He presented to [facility] on 04/23 with increased pain and purulent drainage from the wound. No fevers or chills. The ulcer was noted to probe down to the patients distal phalanx. Upon presentation, VS T36.9 BP 136/76 HR 81 SpO2 96% on RA. Labs showed WBC 8.4 Cr 1.82 ESR 70 CRP 10.10. 04/13 R toe X-ray c/w R 2nd distal phalanx osteomyelitis. 04/23 wound Cx + MRSA and Citrobacter koseri. Now s/p R 2nd toe amputation on 04/24; Cx thus far with Citrobacter koseri and surgical pathology pending. Per OR report, capsule of 2nd MCP joint was incised, R 2nd toe completely excised. Discussed with Dr. Flores on 04/25 at this time suspecting that the bony infection was removed with amputation, however out of caution would prefer to wait for path and if any uncertainty may favor a longer (6-week course, rather than 2-week course) of antibiotics. Allergies Allergy/AdvReac Type Severity Reaction Status Date / Time No Known Allergies Allergy Unverified 04/23/24 07:46 Home Medications Medication Instructions Recorded Confirmed Type aspirin 81 mg tablet,delayed 81 mg PO DAILY ##0 06/15/16 04/23/24 History release brimonidine 0.2 % eye drops 1 drp OPB TID 90 days #15 mL 06/15/16 04/23/24 History latanoprost 0.005 % eye drops 1 drp OPB PM #7.5 mL 06/15/16 04/23/24 History metformin 1,000 mg tablet 1,000 mg PO BID #0 tabs 06/15/16 04/23/24 History timolol 0.5 % eye drops 1 drp OPB BID 60 days #10 mL 06/15/16 04/23/24 History amlodipine 10 mg tablet 10 mg PO DAILY 12/26/23 04/23/24 History atorvastatin 40 mg tablet 40 mg PO HS 12/26/23 04/23/24 History dapagliflozin propanediol 10 mg 10 mg PO DAILY 12/26/23 04/23/24 History tablet dorzolamide 2 % eye drops 1 drp OPB TID 12/26/23 04/23/24 History insulin glargine 100 unit/mL (3 38 unit subcut QAM 12/26/23 04/23/24 History mL) subcutaneous pen insulin regular human 100 unit/mL 2 - 12 sliding scale dose subcut 12/26/23 04/23/24 History injection solution (Novolin R USEASDIRECTD Regular U-100 Insulin) pilocarpine HCl 2 % eye drops 1 drp OPB BID 12/26/23 04/23/24 History valsartan 160 mg tablet 160 mg PO DAILY 12/26/23 04/23/24 History labetalol 200 mg tablet 400 mg PO BID 02/23/24 04/23/24 History mirtazapine 45 mg tablet 45 mg PO HS 04/23/24 04/23/24 History Patient History Medical History Protein in urine Murmur, heart Glaucoma Depressive disorder Osteoarthritis of left knee Toe osteomyelitis, right Social History Smoking Status: Former smoker Hx Alcohol Use: No Hx Substance Use: No Preferred Language: Azeri Communication Ability: Effective Visual Impairment: Limited Hearing Ability: Normal Family Caseworker Required: No Beliefs That Will Affect Care: Jehovah'S Witness Jehovah'S Witness Beliefs: Islamic Current Living Situation: Other Current Living Situation Comment: [facility] current occupational status: unemployed Feels Safe at Home: Yes Diet: regular caffeine: Yes during the past year weight has: increased > 10 lbs Dental Care, Regularly: No Physical Activity Frequency: Daily Assistive Devices: Glasses Results & Data Vital Signs (Past 12 Hours) Vital Signs Temp Pulse Pulse Resp BP Pulse Ox O2 Del Method 04/25/24 07:26 37.1 C 70 16 121/74 96 Room Air 04/25/24 04:05 36.5 C 77 14 144/69 H 95 Room Air Diagnostic Findings Diagnostics: 04/24 OR path PEND 04/24 OR note Right 2nd Toe Amputation The planned incision was carried down to the proximal phalanx with scalpel and cautery, through viable clean soft tissue. The flexor and extensor tendon were released with a scalpel. The capsule of the 2nd MCP joint was incised and the right 2nd toe was completely excised. The right 2nd toe non-healing ulcer, with devitalized soft tissue was cultured. The opening was the size of the culture swab. The wound was copiously irrigated. The skin was closed with 3-0 Prolene 04/23 RLE arterial duplex 1. Mild to moderate atherosclerotic plaque within the right lower extremity without sonographic evidence for hemodynamically significant stenosis. 2. Patent right lower extremity vessels. 04/23 R toe X-ray Right second toe wound with associated marked soft tissue tissue swelling. Interval development of bony erosion of the right second distal phalanx consistent with acute osteomyelitis. Redemonstration of a right second distal phalangeal fracture, as shown on previous MRI. Micro Data: 04/24 R 2nd toe OR Cx: Citrobacter koseri; low probable skin lucas; g/s rare GPCs, rare GNRs 04/23 R 2nd toe surface wound Cx: MRSA (S- dapto/linezolid/rifampin/tetra/Bactrim), Citrobacter koseri (I-levo; R-cipro; otherwise S including S-Augmentin/Unasyn/cefazolin/ceftriaxone/Bactrim) prior 03/21 R 2nd toe wound Cx: MRSA (S-dapto/rifampin/tetra/Bactrim), Citrobacter koseri (R-cefoxitin/cefuroxime; otherwise S including S- Augmentin/Unasyn/cipro/levo/Bactrim) 12/26/23 R 2nd toe wound Cx: Citrobacter koseri (mejia-S) Antibiotic Summary: daptomycin (04/23 present) ceftriaxone (04/24 present) prior cefepime (04/23 present) vancomycin (04/23)
--- NOTE | 2024-04-25 13:53 | Hospitalist Progress Note ---
Date of Service April 25, 2024 Assessment & Plan (1) Acute osteomyelitis of toe of right foot: Plan: Patient with known right second distal phalanx osteomyelitis, Completed course of vancomycin and Bactrim in early April Here w/ worsening pain, drainage, and increased wound measurements from wound care clinic with exposed bone ESR 70, CRP 10.10 on admission and foot x-ray confirming osteomyelitis of second distal phalanx Previous MRI 02/14/2024 showed concern for osteomyelitis Arterial Doppler RLE on admission normal Wound culture 03/21 showing Citrobacter Koseri, resistant to quinolones, and MRSA Wound culture 04/23 now with Citrobacter koseri and MRSA Wound culture 04/24 with Citrobacter koseri and still pending/preliminary Now s/p right second toe amputation on 04/24. Orthopedic surgery reports that there was no ascending soft tissue cellulitis infection but he did incise into the capsule of second MTP joint Orthopedics suspects bony infection removed with amputation but will await bone pathology to determine length of course of treatment Continue Daptomycin for MRSA and change cefepime to ceftriaxone as Citrobacter koseri is not a chromosomal AMPc manager rfid Continue to hold statin while on Dapto Post op care as per Ortho-dressing remains in place Follow CBC, BMP, ESR, CRP Follow-up final culture from 04/24 and follow-up bone pathology (2) CKD (chronic kidney disease) stage 3, GFR 30-59 ml/min: Plan: with ALEKSANDRA on CKD stage 3 here, erisa attorney 1.82 on admission, possibly prerenal from infection? Baseline erisa attorney around 1.5 and remains stable at 1.6 Patient reports he has followed with nephrology for years but does not know his baseline renal function continue valsartan follow BMP renally dose meds (3) B12 deficiency anemia: Plan: Chronic normocytic anemia, hgb baseline 10 Fe studies show low transferrin sat at 12%, ferritin not low but acute phase reactant in setting of OM B12 low at 209--> replace with IM B12 1000mcg x 1 then po B12 1000 mcg daily Folate normal Likely also anemia of CKD Check TSH in the morning (4) Iron deficiency anemia: Plan: as above started FeSO4 325mg po daily needs GI workup as outpt for occult GI blood loss if has not had already in the recent past (5) Hypertension: Plan: BPs controlled Continue home medications - amlodipine, labetalol, valsartan (6) Diabetes type 2, controlled: Plan: Controlled on Metformin, dapagliflozin, and Insulin at home A1C here well controlled at 7.1% pharmacy glycemic consult in place (7) Hyperlipidemia: Plan: lipid panel acceptable continue home baby aspirin hold home statin with daptomycin use Plan Chronic stable diagnoses: Glaucoma - continue home eye drops Mood disorder-continue mirtazapine VTE ppx: SCDs Code status: Full Dispo: continued stay med/surg while awaiting bony pathology and decision to treat with either 2 versus 6 weeks of antibiotics Admission and Anticipated Discharge Date Admission Date: April 23, 2024 Subjective Patient had some moderate to severe pain in the right foot/toe earlier today which was relieved with oxycodone Otherwise denies chest pain, shortness of breath, nausea, headache, diarrhea, abdominal pain. He is eating and drinking without difficulty No other concerns I discussed his care with orthopedic surgery and infectious disease Physical Exam Constitutional: WD/WN, vitals as above Respiratory: normal respiratory effort, lungs clear to auscultation Cardiovascular: RRR, no murmur, no edema Gastrointestinal (Abdomen): normal bowel sounds, soft, nontender, no hepatosplenomegaly Musculoskeletal: Extremities: + extremities abnormal to inspection (Right foot and leg in dressing and Nicolas wrap not removed) Psychiatric: A+Ox3, euthymic affect Results & Data Results & Data Vital Signs (Past 12 Hours) Vital Signs Temp Pulse Pulse Resp BP Pulse Ox O2 Del Method 04/25/24 07:26 37.1 C 70 16 121/74 96 Room Air 04/25/24 04:05 36.5 C 77 14 144/69 H 95 Room Air Laboratory Results CBC, BMP, wound cultures reviewed PG Care Time/CCT Total # of Minutes Spent Total Time Spent with Patient: Total time spent is greater than 50% in coordination of care (as documented) at patient's floor/unit and/or counseling patient: Coding Level of Care Code 90854 SUB INP/OBS CARE 2/35MIN Diagnoses Acute osteomyelitis of toe of right foot M86.171 CKD (chronic kidney disease) stage 3, GFR 30-59 ml/min N18.30 B12 deficiency anemia D51.9 Iron deficiency anemia D50.9 Hypertension I10 Diabetes type 2, controlled E11.9 Hyperlipidemia E78.5
[2024-04-25] MEDS: cefTRIAXone SODIUM 2,000 MG/50 ML BAG IV SCH (16:45)
[2024-04-26 07:28] LABS: Hematocrit (blood only) 28.1 % (42.0-52.0); Hemoglobin 9.5 g/dl (14.0-18.0); Mean Corpuscular Hemoglobin 29.9 pg (25.0-34.0); Mean Corpuscular Hgb Conc 33.8 g/dL (32.0-36.0); Mean Corpuscular Volume 88.4 fL (80.0-100.0); Mean Platelet Volume 10.6 fL (9.4-12.4); Platelet Count 160 K/uL (130-400); RDW Coefficient of Variation 12.3 % (11.5-14.5); RDW Standard Deviation 40.1 fL (36.4-46.3); Red Blood Count 3.18 M/uL (4.70-6.10); White Blood Count 5.24 K/ul (4.8-10.8)
--- NOTE | 2024-04-26 07:38 | Orthopedic Progress Note ---
Date of Service April 26, 2024 Assessment & Plan (1) Acute osteomyelitis of toe of right foot: Plan: POD #2 s/p amputation right second toe Patient doing well this morning. No complaints. Preliminary culture obtained positive for Citrobacter koseri & gram + cocci (previous C&S same w/ MRSA). Appreciate ID consult. Awaiting pathology Weekly labs: CBC, ESR, CRP Dressing changed. Change as needed. WBAT with post op shoe F/U 1 week and 2 week follow up appointments in the clinic. Admission and Anticipated Discharge Date Admission Date: April 23, 2024 Physical Exam Physical Exam: Right foot: Incision clean, dry, intact. Remaining toes neurovascularly intact. Results & Data Vital Signs (Past 12 Hours) Vital Signs Temp Pulse Pulse Resp BP Pulse Ox O2 Del Method 04/26/24 06:57 37.4 C 71 17 129/80 97 Room Air 04/25/24 21:41 37.7 C H 77 18 157/81 H 97 Room Air Laboratory Results Laboratory Results WBC 5.24 K/ul (4.8-10.8) 04/26/24 06:39 RBC 3.18 M/uL (4.70-6.10) L 04/26/24 06:39 Hgb 9.5 g/dl (14.0-18.0) L 04/26/24 06:39 Hct 28.1 % (42.0-52.0) L 04/26/24 06:39 MCV 88.4 fL (80.0-100.0) 04/26/24 06:39 MCH 29.9 pg (25.0-34.0) 04/26/24 06:39 MCHC 33.8 g/dL (32.0-36.0) 04/26/24 06:39 RDW Std Deviation 40.1 fL (36.4-46.3) 04/26/24 06:39 RDW Coeff of [place] 12.3 % (11.5-14.5) 04/26/24 06:39 Plt Count 160 K/uL (130-400) 04/26/24 06:39 MPV 10.6 fL (9.4-12.4) 04/26/24 06:39 Immature Gran % (Auto) 0.6 % 04/23/24 09:30 Neut % (Auto) 68.8 % 04/23/24 09:30 Lymph % (Auto) 17.6 % 04/23/24 09:30 [place] % (Auto) 12.6 % 04/23/24 09:30 Eos % (Auto) 0.0 % 04/23/24 09:30 Baso % (Auto) 0.4 % 04/23/24 09:30 Neut # (Auto) 5.78 K/uL (1.40-6.50) 04/23/24 09:30 Lymph # (Auto) 1.48 K/uL (1.20-3.40) 04/23/24 09:30 [place] # (Auto) 1.06 K/uL (0.11-0.59) H 04/23/24 09:30 Eos # (Auto) 0.00 K/uL (0.00-0.50) 04/23/24 09:30 Baso # (Auto) 0.03 K/uL (0.00-0.20) 04/23/24 09:30 Immature Gran # (Auto) 0.05 K/uL (0.01-0.20) 04/23/24 09:30 ESR 70 mm/hr (0-15) H 04/23/24 09:30 Sodium 136 mmol/L (136-145) 04/25/24 05:16 Potassium 4.1 mmol/L (3.5-5.1) 04/25/24 05:16 Chloride 104 mmol/L (98-107) 04/25/24 05:16 Carbon Dioxide 23 mmol/L (21-32) 04/25/24 05:16 Anion Gap 9 (3-11) 04/25/24 05:16 BUN 26 mg/dl (6-23) H 04/25/24 05:16 Creatinine 1.64 mg/dl (0.6-1.4) H 04/25/24 05:16 Est Cr Clr Drug Dosing 76.5 ml/min 04/25/24 05:16 eGFR 50.96 04/25/24 05:16 BUN/Creatinine Ratio 15.9 (10-20) 04/25/24 05:16 Glucose 123 mg/dl (70-99(Fasting)) H 04/25/24 05:16 POC Glucose 138 mg/dl (70-99) H 04/26/24 07:29 Estimat Average Glucose 157 mg/dl 04/24/24 07:00 Hemoglobin A1c 7.1 % (4.5-5.6) H 04/24/24 07:00 Calcium 9.1 mg/dl (8.6-10.3) 04/25/24 05:16 Iron 26 mcg/dl (35-175) L 04/24/24 07:00 TIBC 210 mcg/dl (250-450) L 04/24/24 07:00 Unsaturated IBC 184 mcg/dl (155-355) 04/24/24 07:00 Transferrin % Sat 12 % (20-50) L 04/24/24 07:00 Ferritin 319.7 ng/ml (8-388) 04/24/24 07:00 Total Bilirubin 0.7 mg/dl (0.2-1.0) 04/23/24 09:30 AST 17 U/L (13-39) 04/23/24 09:30 ALT 16 U/L (7-52) 04/23/24 09:30 Alkaline Phosphatase 48 U/L (34-104) 04/23/24 09:30 C-Reactive Protein 10.10 mg/dl (0-0.5) H 04/23/24 09:30 Total Protein 7.4 gm/dl (6.0-8.3) 04/23/24 09:30 Albumin 3.8 gm/dl (3.4-5.0) 04/23/24 09:30 Globulin 3.6 gm/dl (2.5-4.0) 04/23/24 09:30 Albumin/Globulin Ratio 1.1 (0.9-2) 04/23/24 09:30 Triglycerides 153 mg/dl (0-150) H 04/24/24 07:00 Cholesterol 105 mg/dl (0-200) 04/24/24 07:00 LDL Cholesterol, Calc 44 mg/dl 04/24/24 07:00 VLDL Cholesterol, Calc 31 mg/dl (0-30) H 04/24/24 07:00 HDL Cholesterol 30 mg/dl 04/24/24 07:00 Cholesterol/HDL Ratio 3.5 (0-5) 04/24/24 07:00 Vitamin B12 209 pg/ml (180-914) 04/24/24 07:00 Folate 18.97 ng/ml (>5.38) 04/24/24 07:00 Nasal Screen MRSA (PCR) Negative (Negative) 04/23/24 Unknown Impressions Toe X-Ray 04/23/24 09:19 XR toe(s) RT min 2V CLINICAL HISTORY: wound right 2nd toe, increased pain/wound size COMPARISON: Right second toe radiographs December 06, 2023. Right foot MRI February 14, 2024. FINDINGS: Marked soft tissue swelling of the right second toe is noted. Soft tissue gas extends to the distal tuft of the right second distal phalanx. Bony erosion of the distal phalanx of the second toe has developed. A lucency within the distal phalanx suggests a fracture which was shown on prior MRI. No additional sites of bony erosion are identified. IMPRESSION: Right second toe wound with associated marked soft tissue tissue swelling. Interval development of bony erosion of the right second distal phalanx consistent with acute osteomyelitis. Redemonstration of a right second distal phalangeal fracture, as shown on previous MRI. ACT 112: Negative or not required by law. Electronically signed by: John Iglesias M.D. 04/23/2024 10:02 AM Duplex Scan Lower Extremity Artery 04/23/24 13:15 RIGHT LOWER EXTREMITY ARTERIAL DOPPLER ULTRASOUND CLINICAL HISTORY: osteomyelitis, decreased pulses COMPARISON STUDY: No previous studies for comparison. TECHNIQUE: Color and duplex Doppler sonography of the arterial system of the right lower extremity was performed. FINDINGS: Mild to moderate atherosclerotic plaque within the right lower extremity is noted. No elevated velocities were identified. There is triphasic flow within the right common femoral, superficial femoral and popliteal arteries. Biphasic flow was noted within the right calf vessels. No vessel occlusion was identified. IMPRESSION: 1. Mild to moderate atherosclerotic plaque within the right lower extremity without sonographic evidence for hemodynamically significant stenosis. 2. Patent right lower extremity vessels. ACT 112: Negative or not required by law. Electronically signed by: John Iglesias M.D. 04/23/2024 3:03 PM Diagnostic Findings Pathology Pending
[2024-04-26 07:47] LABS: BUN Creatinine Ratio 16.5 (10-20); C Reactive Protein 8.63 mg/dl (0-0.5); Calcium 8.6 mg/dl (8.6-10.3); Creatinine Clr Calc Pharmacy 76.5 ml/min
[2024-04-26 07:59] LABS: Thyroid Stimulating Hormone 1.454 uIu/ml (0.300-4.500)
[2024-04-26] MEDS: LANTUS PER UNIT CHARGE SC SCH (08:50)
--- NOTE | 2024-04-26 12:53 | Hospitalist Progress Note ---
Date of Service April 26, 2024 Assessment & Plan (1) Acute osteomyelitis of toe of right foot: Plan: Patient with known right second distal phalanx osteomyelitis, Completed course of vancomycin and Bactrim in early April Here w/ worsening pain, drainage, and increased wound measurements from wound care clinic with exposed bone ESR 70, CRP 10.10 on admission and foot x-ray confirming osteomyelitis of second distal phalanx Previous MRI 02/14/2024 showed concern for osteomyelitis Arterial Doppler RLE on admission normal Wound culture 03/21 showing Citrobacter Koseri, resistant to quinolones, and MRSA Wound culture 04/23 now with Citrobacter koseri and MRSA Wound culture 04/24 with Citrobacter koseri and still pending/preliminary ESR further elevated at 80 but CRP is starting to trend down-ESR will lag behind Now s/p right second toe amputation on 04/24. Orthopedic surgery reports that there was no ascending soft tissue cellulitis infection but he did incise into the capsule of second MTP joint Orthopedics suspects bony infection removed with amputation but will await bone pathology to determine length of course of treatment Continue Daptomycin for MRSA and ceftriaxone for Citrobacter (Citrobacter koseri is not a chromosomal AMPc associate producer so okay to use ceftriaxone) Continue to hold statin while on Dapto Post op care as per Ortho-dressing changed on 04/26 Follow CBC, BMP daily, ESR, CRP once weekly Follow-up final culture from 04/24 and follow-up bone pathology-if no residual osteomyelitis, 2 weeks of likely oral antibiotics for SSTI. 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 Creatinine remains stable at 1.5-1.6 Patient reports he has followed with nephrology for years but does not know his baseline renal function but I suspect he is at his baseline currently continue valsartan follow BMP renally dose meds (3) B12 deficiency anemia: Plan: Chronic normocytic anemia, hgb baseline 10 and currently fairly stable at 9.5 Fe studies show low transferrin sat at 12%, ferritin not low but acute phase reactant in setting of OM-started ferrous sulfate 325 mg p.o. once daily B12 low at 209--> replace with IM B12 1000mcg x 1 then po B12 1000 mcg daily Folate and TSH also normal Likely also with anemia of CKD (4) Iron deficiency anemia: Plan: as above started FeSO4 325mg po daily needs GI workup as outpt for occult GI blood loss if has not had already in the recent past (5) Hypertension: Plan: BPs controlled Continue home medications - amlodipine, labetalol, valsartan (6) Diabetes type 2, controlled: Plan: Controlled on Metformin, dapagliflozin, and Insulin at home A1C here well controlled at 7.1% pharmacy glycemic consult in place (7) Hyperlipidemia: Plan: lipid panel acceptable continue home baby aspirin hold home statin with daptomycin use Plan Chronic stable diagnoses: Glaucoma - continue home eye drops Mood disorder-continue mirtazapine VTE ppx: SCDs Code status: Full Dispo: continued stay med/surg while awaiting bony pathology and decision to treat with either 2 versus 6 weeks of antibiotics Admission and Anticipated Discharge Date Admission Date: April 23, 2024 Subjective Patient reports pain is controlled with pain medicine in the toe. No chest pain or shortness of breath, no nausea or vomiting, no abdominal pains or diarrhea. No other concerns or questions Physical Exam Constitutional: WD/WN, vitals as above Respiratory: normal respiratory effort, lungs clear to auscultation Cardiovascular: RRR, no murmur, no edema Gastrointestinal (Abdomen): normal bowel sounds, soft, nontender, no hepatosplenomegaly Musculoskeletal: Extremities: + extremities abnormal to inspection (Right foot and leg in dressing and Nicolas wrap not removed) Psychiatric: A+Ox3, euthymic affect Results & Data Results & Data Vital Signs (Past 12 Hours) Vital Signs Temp Pulse Resp BP Pulse Ox O2 Del Method 04/26/24 06:57 37.4 C 71 17 129/80 97 Room Air Laboratory Results CBC, BMP, ESR, CRP, TSH reviewed PG Care Time/CCT Total # of Minutes Spent Total Time Spent with Patient: Total time spent is greater than 50% in coordination of care (as documented) at patient's floor/unit and/or counseling patient: Coding Level of Care Code 39210 SUB INP/OBS CARE 2/35MIN Diagnoses Acute osteomyelitis of toe of right foot M86.171 CKD (chronic kidney disease) stage 3, GFR 30-59 ml/min N18.30 B12 deficiency anemia D51.9 Iron deficiency anemia D50.9 Hypertension I10 Diabetes type 2, controlled E11.9 Hyperlipidemia E78.5
--- NOTE | 2024-04-26 13:51 | Infectious Disease Progress Nt ---
Date of Service April 26, 2024 Assessment & Plan (1) Acute osteomyelitis of toe of right foot: (2) Diabetes type 2, controlled: Plan ID Problem List: 1. R 2nd toe osteomyelitis s/p R 2nd toe amputation on 04/24. 04/23 wound Cx + MRSA and Citrobacter koseri 2. T2DM 3. Incarcerated status Impression: Antonio Iglesias is a 48-year-old man, currently incarcerated, with history of T2DM, HTN, glaucoma, with known osteomyelitis of the R 2nd distal phalanx (previously s/p vancomycin and Bactrim reportedly from 12/2023), who presents from wound care to [facility] on 04/23 with worsening R 2nd toe wound, now s/p R 2nd toe amputation on 04/24. ID is consulted for R 2nd toe osteomyelitis. He has a longstanding R 2nd toe wound with known osteomyelitis of his right second distal phalanx. He has followed with ortho and wound care for the past few months. He was recently on a course of Bactrim + vancomycin (per wound notes, from December to early March). He was intended to see [facility] ID clinic in March however this was rescheduled to May. Prior wound Cx from 12/26/23 grew Citrobacter koseri, and wound Cx from 03/21 grew MRSA and Citrobacter koseri. He presented to [facility] on 04/23 with increased pain and purulent drainage from the wound. No fevers or chills. The ulcer was noted to probe down to the patients distal phalanx. Upon presentation, VS T36.9 BP 136/76 HR 81 SpO2 96% on RA. Labs showed WBC 8.4 Cr 1.82 ESR 70 CRP 10.10. 04/13 R toe X-ray c/w R 2nd distal phalanx osteomyelitis. Discussion 04/23 wound Cx + MRSA and Citrobacter koseri. Now s/p R 2nd toe amputation on 04/24; Cx thus far with Citrobacter koseri and surgical pathology pending. Per OR report, capsule of 2nd MCP joint was incised, R 2nd toe completely excised. Discussed with Dr. Flores on 04/25 at this time suspecting that the bony infection was removed with amputation, however out of caution would prefer to wait for path and if any uncertainty may favor a longer (6-week course, rather than 2-week course) of antibiotics. Would continue daptomycin given pt with known recent MRSA infection of the toe and wound Cx from 04/23 + MRSA. Citrobacter koseri does not harbor a chromosomal ampC (unlike Citrobacter freundii) so can use ceftriaxone. If pathology without residual osteomyelitis, would be reasonable to treat with a 14-day course to target SSTI (often with PO abx). If any residual osteomyelitis is ultimately seen on pathology (at the proximal margins), or positive Cx from bony margins, pt may benefit from longer course (e.g., 6-week course of abx, likely majority if not all IV). Recommendations: - Continue IV daptomycin - Continue ceftriaxone 2g IV q24h - F/u 04/24 OR pathology to help guide final abx selection and duration - Ensure close follow up with primary care and surgery ID will continue to follow. Adore Anderson MD, S Infectious Diseases [facility]/ID Connect ID Connect direct line: [phone] Admission and Anticipated Discharge Date Admission Date: April 23, 2024 Subjective This patient recommendation is based on a telemedicine consult request which was completed asynchronously through chart review and information provided by the primary physician. The patient was not seen or examined today. The evaluation is consultative in nature and all patient care and treatment decisions can either be accepted or rejected by the patient's primary hospital-based treating physician using their own independent medical judgment for their patient. Time Spent Reviewing Chart: 31+ minutes - Afebrile, WBC 5.24 - Awaiting OR path Results & Data Vital Signs (Past 12 Hours) Vital Signs Temp Pulse Resp BP Pulse Ox O2 Del Method 04/26/24 06:57 37.4 C 71 17 129/80 97 Room Air Diagnostic Findings Diagnostics: 04/24 OR path PEND 04/24 OR note Right 2nd Toe Amputation The planned incision was carried down to the proximal phalanx with scalpel and cautery, through viable clean soft tissue. The flexor and extensor tendon were released with a scalpel. The capsule of the 2nd MCP joint was incised and the right 2nd toe was completely excised. The right 2nd toe non-healing ulcer, with devitalized soft tissue was cultured. The opening was the size of the culture swab. The wound was copiously irrigated. The skin was closed with 3-0 Prolene 04/23 RLE arterial duplex 1. Mild to moderate atherosclerotic plaque within the right lower extremity without sonographic evidence for hemodynamically significant stenosis. 2. Patent right lower extremity vessels. 04/23 R toe X-ray Right second toe wound with associated marked soft tissue tissue swelling. Interval development of bony erosion of the right second distal phalanx consistent with acute osteomyelitis. Redemonstration of a right second distal phalangeal fracture, as shown on previous MRI. Micro Data: 04/24 R 2nd toe OR Cx: Citrobacter koseri; low probable skin lucas; g/s rare GPCs, rare GNRs 04/23 R 2nd toe surface wound Cx: MRSA (S- dapto/linezolid/rifampin/tetra/Bactrim), Citrobacter koseri (I-levo; R-cipro; otherwise S including S-Augmentin/Unasyn/cefazolin/ceftriaxone/Bactrim) prior 03/21 R 2nd toe wound Cx: MRSA (S-dapto/rifampin/tetra/Bactrim), Citrobacter koseri (R-cefoxitin/cefuroxime; otherwise S including S- Augmentin/Unasyn/cipro/levo/Bactrim) 12/26/23 R 2nd toe wound Cx: Citrobacter koseri (mejia-S) Antibiotic Summary: daptomycin (04/23 present) ceftriaxone (04/24 present) prior cefepime (04/23 present) vancomycin (04/23)
[2024-04-26 20:31] VITALS: RESP 16
[2024-04-27 06:55] LABS: Basophils # (auto) 0.02 K/uL (0.00-0.20); Basophils % (auto) 0.4 %; Eosinophils # (auto) 0.08 K/uL (0.00-0.50); Eosinophils % (auto) 1.6 %; Hematocrit (blood only) 26.2 % (42.0-52.0); Hemoglobin 8.8 g/dl (14.0-18.0); Immature Granulocytes # (auto) 0.02 K/uL (0.01-0.20); Immature Granulocytes % (auto) 0.4 %; Lymphocytes # (auto) 1.43 K/uL (1.20-3.40); Lymphocytes % (auto) 28.6 %; Mean Corpuscular Hemoglobin 29.5 pg (25.0-34.0); Mean Corpuscular Hgb Conc 33.6 g/dL (32.0-36.0); Mean Corpuscular Volume 87.9 fL (80.0-100.0); Mean Platelet Volume 10.2 fL (9.4-12.4); Monocytes # (auto) 0.68 K/uL (0.11-0.59); Monocytes % (auto) 13.6 %; Neutrophils # (auto) 2.77 K/uL (1.40-6.50); Neutrophils % (auto) 55.4 %; Platelet Count 153 K/uL (130-400); RDW Coefficient of Variation 12.4 % (11.5-14.5); RDW Standard Deviation 39.9 fL (36.4-46.3); Red Blood Count 2.98 M/uL (4.70-6.10)
[2024-04-27 07:15] LABS: BUN Creatinine Ratio 16.4 (10-20); Calcium 8.6 mg/dl (8.6-10.3); Potassium 4.3 mmol/L (3.5-5.1)
--- NOTE | 2024-04-27 10:01 | Orthopedic Progress Note ---
Date of Service April 27, 2024 Assessment & Plan (1) Acute osteomyelitis of toe of right foot: Plan: POD #3 s/p amputation right second toe Patient doing well this morning. No complaints. Cultures are finalized showing growth of Citrobacter koseri & MRSA. S ensitivities are in the chart. Awaiting ID recommendations for antibiotics and possibility of PICC line for infusions Weekly labs: CBC, ESR, CRP Dressing changed yesterday WBAT with post op shoe 1 and 2-week follow-ups have been made Admission and Anticipated Discharge Date Admission Date: April 23, 2024 Review of Systems Review of Systems: All systems reviewed & are unremarkable except as noted in Subjective Physical Exam Physical Exam: Right Foot: Dressing was clean dry and intact and left in place. It was changed by Dr. Flores yesterday. Patient is able to perform active straight leg raise test. He is able to actively dorsi and plantarflex foot. His calf is soft and supple nontender to palpation. Results & Data Vital Signs (Past 12 Hours) Vital Signs Temp Pulse Resp BP Pulse Ox O2 Del Method 04/27/24 07:35 37.4 C 70 16 135/82 98 Room Air Laboratory Results Source: Toe,Right Second OV Order: Ordered: Aer/Sofy Cult/Sm Comments: Comment Culture set #1 Right 2nd toe. Procedure Result Verified Site Gram Stain Final 04/24/24-183 Gram Stain Result Few WBCs Seen Rare Gram Positive Cocci Rare Gram Negative Bacilli Aero/Sofy Cult Preliminary 04/27/24-1025 Organism 1 Citrobacter koseri Quantity Moderate Sens Sensitivities to Follow +MixWound Plus Low Counts of Probable Skin [place] Organism 2 Staphylococcus aureus Quantity Rare Sens Sensitivities to Follow Organism 3 Prevotella bivia Quantity Many Sens No Sensitivities to Follow C koseri RX M.I.C. --- --------- Amikacin S <=16 Amox/Clav S <=8/4 Amp/Sul S <=4/2 Cefazolin S <=2 Cefepime S <=2 Cefotaxime S <=2 Cefoxitin I 16 Ceftriaxone S <=1 Cefuroxime I 16 Ciprofloxacin S <=0.25 Ertapenem S <=0.5 Gentamicin S <=2 Levofloxacin S <=0.5 Meropenem S <=1 Tobramycin S <=2 Trimeth/Sulfa S <=0.5/9.5 Pip/Tazo S <=8 S = SENSITIVE I = INTERMEDIATE R = RESISTANT Spec: [id number] Collected: 04/23/24 Received: 04/23/[address]: Sis Campos PA-C Source: Toe,Right Second OV Order: Ordered: Surf Wnd Cul/Sm Procedure Result Verified Site Gram Stain Final 04/24/24 Gram Stain Result Rare WBCs Seen Many Gram Positive Cocci Many Gram Negative Bacilli Surface Wound Culture Final 04/25/24 Organism 1 Citrobacter koseri Quantity Many Sens Sensitivities to Follow Organism 2 Staph aureus MRSA Quantity Moderate Sens Sensitivities to Follow C koseri MRSA RX M.I.C. RX M.I.C. --- --------- --- --------- Amikacin S <=16 Amox/Clav S <=8/4 Amp/Sul S 8/4 Cefazolin S <=2 Cefepime S <=2 Cefotaxime S <=2 Cefoxitin R >16 Ceftriaxone S <=1 Cefuroxime R >16 Ciprofloxacin S <=0.25 Clindamycin R >4 Daptomycin S <=0.5 Ertapenem S <=0.5 Erythromycin R >4 Gentamicin S <=2 Levofloxacin S <=0.5 Linezolid S 2 Meropenem S <=1 Oxacillin R >2 Rifampin S <=1 Tetracycline S <=4 Tobramycin S <=2 Trimeth/Sulfa S <=0.5/9.5 S <=0.5/9.5 Pip/Tazo S <=8 Vancomycin S 1 S = SENSITIVE I = INTERMEDIATE R = RESISTANT Diagnostic Findings Laboratory Results WBC 5.00 K/ul (4.8-10.8) 04/27/24 06:37 RBC 2.98 M/uL (4.70-6.10) L 04/27/24 06:37 Hgb 8.8 g/dl (14.0-18.0) L 04/27/24 06:37 Hct 26.2 % (42.0-52.0) L 04/27/24 06:37 MCV 87.9 fL (80.0-100.0) 04/27/24 06:37 MCH 29.5 pg (25.0-34.0) 04/27/24 06:37 MCHC 33.6 g/dL (32.0-36.0) 04/27/24 06:37 RDW Std Deviation 39.9 fL (36.4-46.3) 04/27/24 06:37 RDW Coeff of [place] 12.4 % (11.5-14.5) 04/27/24 06:37 Plt Count 153 K/uL (130-400) 04/27/24 06:37 MPV 10.2 fL (9.4-12.4) 04/27/24 06:37 Immature Gran % (Auto) 0.4 % 04/27/24 06:37 Neut % (Auto) 55.4 % 04/27/24 06:37 Lymph % (Auto) 28.6 % 04/27/24 06:37 [place] % (Auto) 13.6 % 04/27/24 06:37 Eos % (Auto) 1.6 % 04/27/24 06:37 Baso % (Auto) 0.4 % 04/27/24 06:37 Neut # (Auto) 2.77 K/uL (1.40-6.50) 04/27/24 06:37 Lymph # (Auto) 1.43 K/uL (1.20-3.40) 04/27/24 06:37 [place] # (Auto) 0.68 K/uL (0.11-0.59) H 04/27/24 06:37 Eos # (Auto) 0.08 K/uL (0.00-0.50) 04/27/24 06:37 Baso # (Auto) 0.02 K/uL (0.00-0.20) 04/27/24 06:37 Immature Gran # (Auto) 0.02 K/uL (0.01-0.20) 04/27/24 06:37 ESR 80 mm/hr (0-15) H 04/26/24 06:39 Sodium 139 mmol/L (136-145) 04/27/24 06:37 Potassium 4.3 mmol/L (3.5-5.1) 04/27/24 06:37 Chloride 107 mmol/L (98-107) 04/27/24 06:37 Carbon Dioxide 23 mmol/L (21-32) 04/27/24 06:37 Anion Gap 9 (3-11) 04/27/24 06:37 BUN 24 mg/dl (6-23) H 04/27/24 06:37 Creatinine 1.46 mg/dl (0.6-1.4) H 04/27/24 06:37 Est Cr Clr Drug Dosing 86.0 ml/min 04/27/24 06:37 eGFR 58.59 04/27/24 06:37 BUN/Creatinine Ratio 16.4 (10-20) 04/27/24 06:37 Glucose 137 mg/dl (70-99(Fasting)) H 04/27/24 06:37 POC Glucose 155 mg/dl (70-99) H 04/27/24 07:37 Estimat Average Glucose 157 mg/dl 04/24/24 07:00 Hemoglobin A1c 7.1 % (4.5-5.6) H 04/24/24 07:00 Calcium 8.6 mg/dl (8.6-10.3) 04/27/24 06:37 Iron 26 mcg/dl (35-175) L 04/24/24 07:00 TIBC 210 mcg/dl (250-450) L 04/24/24 07:00 Unsaturated IBC 184 mcg/dl (155-355) 04/24/24 07:00 Transferrin % Sat 12 % (20-50) L 04/24/24 07:00 Ferritin 319.7 ng/ml (8-388) 04/24/24 07:00 Total Bilirubin 0.7 mg/dl (0.2-1.0) 04/23/24 09:30 AST 17 U/L (13-39) 04/23/24 09:30 ALT 16 U/L (7-52) 04/23/24 09:30 Alkaline Phosphatase 48 U/L (34-104) 04/23/24 09:30 C-Reactive Protein 8.63 mg/dl (0-0.5) H 04/26/24 06:39 Total Protein 7.4 gm/dl (6.0-8.3) 04/23/24 09:30 Albumin 3.8 gm/dl (3.4-5.0) 04/23/24 09:30 Globulin 3.6 gm/dl (2.5-4.0) 04/23/24 09:30 Albumin/Globulin Ratio 1.1 (0.9-2) 04/23/24 09:30 Triglycerides 153 mg/dl (0-150) H 04/24/24 07:00 Cholesterol 105 mg/dl (0-200) 04/24/24 07:00 LDL Cholesterol, Calc 44 mg/dl 04/24/24 07:00 VLDL Cholesterol, Calc 31 mg/dl (0-30) H 04/24/24 07:00 HDL Cholesterol 30 mg/dl 04/24/24 07:00 Cholesterol/HDL Ratio 3.5 (0-5) 04/24/24 07:00 Vitamin B12 209 pg/ml (180-914) 04/24/24 07:00 Folate 18.97 ng/ml (>5.38) 04/24/24 07:00 TSH 1.454 uIu/ml (0.300-4.500) 04/26/24 06:39 Nasal Screen MRSA (PCR) Negative (Negative) 04/23/24 Unknown Impressions Toe X-Ray 04/23/24 09:19 XR toe(s) RT min 2V CLINICAL HISTORY: wound right 2nd toe, increased pain/wound size COMPARISON: Right second toe radiographs December 06, 2023. Right foot MRI February 14, 2024. FINDINGS: Marked soft tissue swelling of the right second toe is noted. Soft tissue gas extends to the distal tuft of the right second distal phalanx. Bony erosion of the distal phalanx of the second toe has developed. A lucency within the distal phalanx suggests a fracture which was shown on prior MRI. No additional sites of bony erosion are identified. IMPRESSION: Right second toe wound with associated marked soft tissue tissue swelling. Interval development of bony erosion of the right second distal phalanx consistent with acute osteomyelitis. Redemonstration of a right second distal phalangeal fracture, as shown on previous MRI. ACT 112: Negative or not required by law. Electronically signed by: John Iglesias M.D. 04/23/2024 10:02 AM Duplex Scan Lower Extremity Artery 04/23/24 13:15 RIGHT LOWER EXTREMITY ARTERIAL DOPPLER ULTRASOUND CLINICAL HISTORY: osteomyelitis, decreased pulses COMPARISON STUDY: No previous studies for comparison. TECHNIQUE: Color and duplex Doppler sonography of the arterial system of the right lower extremity was performed. FINDINGS: Mild to moderate atherosclerotic plaque within the right lower extremity is noted. No elevated velocities were identified. There is triphasic flow within the right common femoral, superficial femoral and popliteal arteries. Biphasic flow was noted within the right calf vessels. No vessel occlusion was identified. IMPRESSION: 1. Mild to moderate atherosclerotic plaque within the right lower extremity without sonographic evidence for hemodynamically significant stenosis. 2. Patent right lower extremity vessels. ACT 112: Negative or not required by law. Electronically signed by: John Iglesias M.D. 04/23/2024 3:03 PM
--- NOTE | 2024-04-27 10:28 | Pharmacy Report ---
Pharmacy Glycemic Short Note 2 - Date of Service April 27, 2024 - Glycemic Short BSG Results (Last 24 hours): 04/26/24 04/26/24 04/26/24 11:46 16:19 20:28 Glucose POC Glucose 218 H 139 H 215 H 04/27/24 04/27/24 06:37 07:37 Glucose 137 H POC Glucose 155 H OUTPATIENT ANTIDIABETIC REGIMEN: * Lantus 38 units SQ q AM * Novolin R sliding scale (2-12 units)/dose * metformin 1000mg po bid * Farxiga 10mg po daily HbA1c 7.1% (04/24/24) ASSESSMENT: 04/27 * Deyanira receibved 67 units of insulin yesterday (30 were basal) * Fasting BSG this AM acceptable, continue current basal regimen * Carbohydrate ratio tightened slightly due to trend of lunchtime BSG increase * He continues on daptomycin and ceftriaxone 04/25 * Antonio received 23 units of insulin yesterday (15 were basal) * Fasting BSG within goal range this AM, will give basal insulin this afternoon to try and transition back to AM dosing like outpatient regimen * No change to NovoLog parameters at this time, continues on daptomycin/c efepime. 04/24 * Patient received 20 units of basal last night, fasting at goal, patient NPO today for right second toe amputation later today with Dr. Flores. * Will place basal on scale for tonight's dose, and re-evaluate tomorrow, moving basal back to AM dosing like outpatient regimen. 04/23 * 48 year old male admitted for osteomyelitis of the toe of the right foot. He already completed a course of vancomycin and Bactrim earlier this month but presents with worsening pain, drainage, and worsening wound. He is currently ordered cefepime and daptomycin. * His BSG on presentation this morning was 206mg/dL. Pharmacy was consulted for glycemic management while he is admitted. * BSG at dinner time was 153mg/dL. Will add a Lantus scale for tonight (10-20 units) x 1. * Weight based bolus insulin dosing with a stress of 2 will be started at dinner time today. * SCr today is 1.82 (baseline unclear) PLAN FOR INPATIENT GLYCEMIC CONTROL: * Hold outpatient diabetes medications * Basal insulin * Lantus 25 units SQ QAM * Lantus 0-10 units SQ HS based on BSG if needed (see eMAR for additional details) * Bolus insulin * NovoLog per scale ACHS or Q6hrs while NPO * Goal Range: Low 110 mg/dL - High 140 mg/dL * Correction Factor: 25 mg/dL/unit * Nutritional / Prandial insulin per carb ratio of 1 unit per 6 grams CHO consumed
[2024-04-27] MEDS: SODIUM CHLORIDE 0.9% 500 ML IV ONE (13:35)
--- NOTE | 2024-04-27 13:46 | Discharge Summary ---
Discharge Summary Date of Service April 27, 2024 Principal Dx & Hospital Course #1 = Principal Diagnosis (1) Acute osteomyelitis of toe of right foot: Patient with known right second distal phalanx osteomyelitis, Completed course of vancomycin and Bactrim in early April Here w/ worsening pain, drainage, and increased wound measurements from wound care clinic with exposed bone ESR 70, CRP 10.10 on admission and foot x-ray confirming osteomyelitis of second distal phalanx Previous MRI 02/14/2024 showed concern for osteomyelitis Arterial Doppler RLE on admission normal Wound culture 03/21 showing Citrobacter Koseri, resistant to quinolones, and M RSA Wound culture 04/23 also with Citrobacter koseri and MRSA Wound culture 04/24 with Citrobacter koseri, Staph (sensitivities pending), and Prevotella ESR further elevated at 80 but CRP is starting to trend down-ESR will lag behind Now s/p right second toe amputation on 04/24. Orthopedic surgery reports that there was no ascending soft tissue cellulitis infection but he did incise into the capsule of second MTP joint Bone pathology shows no residual OM at proximal margin of amputation-completely resected Received Daptomycin for MRSA and ceftriaxone for Citrobacter (Citrobacter koseri is not a chromosomal AMPc beer coil cleaner so okay to use ceftriaxone), Flagyl for Prevotella--> convert to Augmentin and doxycycline to complete a 3 week course Post op care as per Ortho-dressing changed on 04/26. 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 Creatinine remains stable at 1.4-1.6 Patient reports he has followed with nephrology for years but does not know his baseline renal function but I suspect he is at his baseline currently continue valsartan follow BMP as outpt renally dose meds-consider stopping or reducing dose of metformin if security infrastructure engineer remains > 1.5 resume Jardiance on discharge (3) B12 deficiency anemia: Chronic normocytic anemia, hgb baseline 10 and currently fairly stable at 9.5 Fe studies show low transferrin sat at 12%, ferritin not low but acute phase reactant in setting of OM-started ferrous sulfate 325 mg p.o. once daily B12 low at 209--> replaced with IM B12 1000mcg x 1 then po B12 1000 mcg daily Folate and TSH also normal Likely also with anemia of CKD (4) Iron deficiency anemia: as above started FeSO4 325mg po daily needs GI workup as outpt for occult GI blood loss if has not had already in the recent past (5) Hypertension: BPs controlled Continue home medications - amlodipine, labetalol, valsartan (6) Diabetes type 2, controlled: Controlled on Metformin, dapagliflozin, and Insulin at home A1C here well controlled at 7.1% consider stopping metformin if renal function persistently security infrastructure engineer>1.5 (7) Hyperlipidemia: lipid panel acceptable continue home baby aspirin continue statin Plan Chronic stable diagnoses: Glaucoma - continue home eye drops Mood disorder-continue mirtazapine VTE ppx: SCDs Code status: Full Dispo: dc to jail on po antibiotics Discussed all care with jail physician, Dr. Garcia, on day of dishcarge Notes For Next Care Provider Follow CBC, CMP, ESR, CRP once weekly while on antibiotics Needs GI workup for iron deficiency anemia Medication Changes From Visit Added doxycycline 100mg po bid x 18 more days Added Augmentin 875/125mg po bid x 18 more days Admission HPI Per Admitting Provider Patient is a 48-year-old male with a past medical history of type 2 diabetes, hypertension, hyperlipidemia, and glaucoma. He has known osteomyelitis of his right second distal phalanx. He has been followed by orthopedics and wound care for the past few months. He was sent in by wound care today due to increased pain, purulent drainage, and increased wound measurements of his toe. 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 patient confirms that wound has had increased drainage, swelling, and pain. Although he also states he does not have much feeling in his feet. He stated that he stopped the antibiotics in early April, then about a week ago the symptoms began to worsen again. He follows with Dr. Flores, orthopedics, Along with wound care. He uses a boot to walk around. As per wound care note, patient was to have ID visit in March, that was rescheduled for early May. Dr. Flores recommended in March that if current management does not improve, can consider amputation. Patient denies fever, chills, headache, dizziness, lightheadedness, vision changes, rhinorrhea, sore throat, cough, sputum production, dyspnea, dyspnea on exertion, chest pain, abdominal pain, nausea, vomiting, diarrhea, constipation, dysuria, hematuria, edema, numbness, tingling. Discharge Exam Constitutional WD/WN, vitals as above Respiratory normal respiratory effort, lungs clear to auscultation Cardiovascular RRR, no murmur, no edema Gastrointestinal (Abdomen) normal bowel sounds, soft, nontender, no hepatosplenomegaly Musculoskeletal Extremities: + extremities abnormal to inspection (Right foot and leg in dressing and Nicolas wrap not removed) Psychiatric A+Ox3, euthymic affect Discharge Plan Discharge Items Patient Disposition: [facility] Reason For Visit: OSTEOMYELITIS Discharge Diagnosis: Right toe osteomyelitis Condition on Discharge: Good Activity: As commented below Exercise Comment: with walking shoe on right Non-emergency contact: Primary Care Provider and Surgeon Call non-emergency contact if: you have any medication questions, your symptoms worsen, you have a fever, your wound has increased redness, your wound has increased drainage and your wound pain has increased Follow-up/Referrals: Dhiraj Flores MD [Physician] - (Follow up within 1-2 weeks) Yohana ZAMUDIO [Primary Care Provider] - Diet: Carb Consistent or DM2 Addtl Attending Provider Instructions: Please continue taking the antibiotics as prescribed for 17 more days through 05/15/24. You should have a CBC, CMP, ESR, and CRP once weekly while on antibiotics. You were also found to have vitamin B12 and iron deficiency anemia. You were started on B12 and iron supplements. You should have a Gastroenterology workup to include EGD and colonoscopy to look for any source of bleeding in your gut. Addtl Last Dipper Provider Instructions: Orthopedic instructions: Weightbearing as tolerated using post-op shoe Keep dressing and surgical site clean, dry, protected. Do not get wet. Change dressing as needed. Follow up in clinic at scheduled appointments for ongoing management Pending Studies at Discharge: Yes (final wound culture sensitivities from 04/24) Stand-Alone Forms: My [facility] Skilled Items Patient informed of condition?: Yes Discharge Level of Care: Other Communicable Disease: No Discharge Prognosis: Improving Lines: None Urinary Catheter: No Medications and DC Order Prescriptions: New ferrous sulfate 325 mg (65 mg iron) Tablet,Delayed Release (Dr/Ec) 325 mg PO QAM Qty: 30 0RF cyanocobalamin (vitamin B-12) 1,000 mcg capsule 1,000 mcg PO DAILY Qty: 30 0RF amoxicillin-pot clavulanate 875-125 mg tablet 1 tab PO BID Qty: 35 0RF doxycycline hyclate 100 mg tablet 100 mg PO BID Qty: 35 0RF Continued atorvastatin 40 mg tablet 40 mg PO HS amlodipine 10 mg tablet 10 mg PO DAILY valsartan 160 mg tablet 160 mg PO DAILY dapagliflozin propanediol 10 mg tablet 10 mg PO DAILY dorzolamide 2 % drops 1 drp OPB TID insulin glargine 100 unit/mL (3 mL) insulin pen 38 unit subcut QAM Novolin R Regular U100 Insulin 100 unit/mL solution 2 - 12 sliding scale dose subcut USEASDIRECTD Rx Instructions: 151-200 = 2units; 201-250 = 4units; 251-300 = 6units; 301-350 = 8units; 351- 400 = 10units; 401-450 = 12units. >451 call pilocarpine HCl 2 % drops 1 drp OPB BID aspirin 81 mg Tablet,Delayed Release (Dr/Ec) 81 mg PO DAILY Qty: 0 brimonidine [Alphagan] 0.2 % Drops 1 drp OPB TID 90 Days Qty: 15 Rx Instructions: administer approximately 8 hours apart latanoprost 0.005 % Drops 1 drp OPB PM Qty: 7.5 metformin 1,000 mg Tablet 1,000 mg PO BID Qty: 0 timolol 0.5 % Drops 1 drp OPB BID 60 Days Qty: 10 labetalol 200 mg Tablet 400 mg PO BID mirtazapine 45 mg Tablet 45 mg PO HS Discharge Orders: Discharge Order (Routine); Ordered 04/27/24 Ordered By: Lissa Jerry Admission Data Admit Date/Time: 04/23/24 13:39 Attending Provider: Lissa Jerry Admit Provider: Riley Malin Primary Care Provider: Yohana ZAMUDIO Other Providers: Riley Malin; Dhiraj Flores; Claudia Jameson; Daniela Menendez; Gail Valdez; Florencia Pedroza; India Wetzel; Justin,Adore Hospital Stay Data Consultations 04/23/24 12:44 ED Decision to Admit Stat 04/23/24 17:14 Consult Orthopedic Surgery Routine 04/24/24 17:30 Consult Infectious Diseases Routine Procedures Performed Operation Date: 04/24/24 08:45 Actual Procedures p Right 2nd Toe Amputation(Right) - Dhiraj Flores MD Diagnostic Imagining Performed 04/23/24 13:15 US arterial duplex LE RT Stat Pending Results Patient Have Any Pending Studies at Discharge: Yes (final wound culture sensitivities from 04/24) Discharge Instructions Given to Patient (Per Discharging Provider) Please continue taking the antibiotics as prescribed for 17 more days through 05/15/24. You should have a CBC, CMP, ESR, and CRP once weekly while on antibiotics. You were also found to have vitamin B12 and iron deficiency anemia. You were started on B12 and iron supplements. You should have a Gastroenterology workup to include EGD and colonoscopy to look for any source of bleeding in your gut. Total Time Total Time Spent Total Time Spent (In Minutes): 40 min Total Time Includes: Examination of the Patient, Discharge Planning, Medication Reconciliation and Communication With Other Providers (Halfway PCP) Coding Level of Care Code 89221 INP/OBS DISCH >30 MIN Diagnoses Acute osteomyelitis of toe of right foot M86.171 CKD (chronic kidney disease) stage 3, GFR 30-59 ml/min N18.30 B12 deficiency anemia D51.9 Iron deficiency anemia D50.9 Hypertension I10 Diabetes type 2, controlled E11.9 Hyperlipidemia E78.5
--- NOTE | 2024-04-27 13:49 | Infectious Disease Progress Nt ---
Date of Service April 27, 2024 Assessment & Plan (1) Acute osteomyelitis of toe of right foot: (2) Diabetes type 2, controlled: Plan ID Problem List: 1. R 2nd toe osteomyelitis s/p R 2nd toe amputation on 04/24. 04/23 wound Cx + MRSA and Citrobacter koseri. 04/24 OR Cx + Citrobacter koseri, Staph aureus, Prevotella bivia 2. T2DM 3. Incarcerated status Impression: Antonio Iglesias is a 48-year-old man, currently incarcerated, with history of T2DM, HTN, glaucoma, with known osteomyelitis of the R 2nd distal phalanx (previously s/p vancomycin and Bactrim reportedly from 12/2023), who presents from wound care to [facility] on 04/23 with worsening R 2nd toe wound, now s/p R 2nd toe amputation on 04/24. ID is consulted for R 2nd toe osteomyelitis. He has a longstanding R 2nd toe wound with known osteomyelitis of his right second distal phalanx. He has followed with ortho and wound care for the past few months. He was recently on a course of Bactrim + vancomycin (per wound notes, from December to early March). He was intended to see [facility] ID clinic in March however this was rescheduled to May. Prior wound Cx from 12/26/23 grew Citrobacter koseri, and wound Cx from 03/21 grew MRSA and Citrobacter koseri. He presented to [facility] on 04/23 with increased pain and purulent drainage from the wound. No fevers or chills. The ulcer was noted to probe down to the patients distal phalanx. Upon presentation, VS T36.9 BP 136/76 HR 81 SpO2 96% on RA. Labs showed WBC 8.4 Cr 1.82 ESR 70 CRP 10.10. 04/13 R toe X-ray c/w R 2nd distal phalanx osteomyelitis. Discussion 04/23 wound Cx + MRSA and Citrobacter koseri. Now s/p R 2nd toe amputation on 04/24; OR Cx Citrobacter koseri, Staph aureus (presume MRSA given recent prior Cx) and Prevotella bivia. Per OR report, capsule of 2nd MCP joint was incised, R 2nd toe completely excised. Discussed with Dr. Flores on 04/25 at this time suspecting that the bony infection was removed with amputation. 04/24 OR path showing acute osteomyelitis of the amputated portion; it was noted on gross description that there is no obvious discoloration of the middle or proximal phalangeal bones. Given low suspicion for residual osteomyelitis, can treat with a course to target residual SSTI (typically 10-14 days); out of caution Dr. Flores preferring to extend the treatment course to 3 weeks with PO abx which is reasonable. While inpatient, can treat with daptomycin (MRSA), ceftriaxone (Citrobacter which does not typically have a chromosomal ampC like C. freundii), and metronidazole (Prevotella/anaerobes though mainstay of anaerobic treatment is surgical source control). Given that pathology without residual osteomyelitis, can transition to doxycycline + Augmentin to complete a 3-week course for SSTI. Recommendations: - Continue IV daptomycin, ceftriaxone 2g IV q24h, and metronidazole 500 mg PO BID while inpatient - If improving and will be discharging, can transition to doxycycline 100 mg PO BID and Augmentin 875 mg PO BID to complete a 3-week course for SSTI (04/2305/13/24) - Ensure close follow up with primary care and surgery Plan discussed with Dr. Jerry and Dr. Flores. Thank you for letting ID participate in the care of this patient. ID will sign off at this time. If questions, please contact the [facility] call center at [phone]. Adore Anderson MD, S Infectious Diseases [facility]/ID Connect ID Connect direct line: [phone] Admission and Anticipated Discharge Date Admission Date: April 23, 2024 Subjective This patient recommendation is based on a telemedicine consult request which was completed asynchronously through chart review and information provided by the primary physician. The patient was not seen or examined today. The evaluation is consultative in nature and all patient care and treatment decisions can either be accepted or rejected by the patient's primary hospital-based treating physician using their own independent medical judgment for their patient. Time Spent Reviewing Chart: 31+ minutes - Afebrile, WBC 5 - 04/24 OR path showing acute osteomyelitis of the amputated portion; it was noted on gross description that there is no obvious discoloration of the middle or proximal phalangeal bones. Results & Data Vital Signs (Past 12 Hours) Vital Signs Temp Pulse Resp BP Pulse Ox O2 Del Method 04/27/24 07:35 37.4 C 70 16 135/82 98 Room Air Diagnostic Findings Diagnostics: 04/24 OR path Toe, right second, amputation: - Acute osteomyelitis. Ulcer. Acute cellulitis. RIGHT SECOND TOE The specimen is received in a container labeled right 2nd toe with the patient name. The specimen consists of an amputated toe which measures 4.8 x 2.8 x 2.6 cm. A 2 x 1.5 cm ulcer is noted at the distal tip, with a portion extending to the underlying bone. On sectioning the bone shows a dull grayish discoloration though is not softened. No obvious discoloration of the middle or proximal phalangeal bones are noted. [employer]ist sections are submitted in three cassettes with A1 representing the distal phalangeal bone; A2, an en face section of the proximal end of the proximal phalangeal bone (A1 and A2 for decalcification) and A3, section of the ulcer. 04/24 OR note Right 2nd Toe Amputation The planned incision was carried down to the proximal phalanx with scalpel and cautery, through viable clean soft tissue. The flexor and extensor tendon were released with a scalpel. The capsule of the 2nd MCP joint was incised and the right 2nd toe was completely excised. The right 2nd toe non-healing ulcer, with devitalized soft tissue was cultured. The opening was the size of the culture swab. The wound was copiously irrigated. The skin was closed with 3-0 Prolene 04/23 RLE arterial duplex 1. Mild to moderate atherosclerotic plaque within the right lower extremity w ithout sonographic evidence for hemodynamically significant stenosis. 2. Patent right lower extremity vessels. 04/23 R toe X-ray Right second toe wound with associated marked soft tissue tissue swelling. Interval development of bony erosion of the right second distal phalanx consistent with acute osteomyelitis. Redemonstration of a right second distal phalangeal fracture, as shown on previous MRI. Micro Data: 04/24 R 2nd toe OR Cx: mod Citrobacter koseri, rare Staph aureus, many Prevotella bivia; low probable skin lucas; g/s rare GPCs, rare GNRs 04/23 R 2nd toe surface wound Cx: MRSA (S- dapto/linezolid/rifampin/tetra/Bactrim), Citrobacter koseri (I-levo; R-cipro; otherwise S including S-Augmentin/Unasyn/cefazolin/ceftriaxone/Bactrim) prior 03/21 R 2nd toe wound Cx: MRSA (S-dapto/rifampin/tetra/Bactrim), Citrobacter koseri (R-cefoxitin/cefuroxime; otherwise S including S- Augmentin/Unasyn/cipro/levo/Bactrim) 12/26/23 R 2nd toe wound Cx: Citrobacter koseri (mejia-S) Antibiotic Summary: daptomycin (04/23 present) ceftriaxone (04/24 present) metronidazole (04/27 present) prior cefepime (04/23 present) vancomycin (04/23)
[2024-04-27 14:11] VITALS: BP 135/71; PULSE 65; TEMP 98.4; O2SAT 95
[2024-04-27] MEDS ORDERED: metroNIDAZOLE 500 MG TAB PO SCH (21:00)
== END 2024-04-27 19:13 | DRG 617 ==
LOC: ED 08:41 → SUATTDRO 13:39 → 3E 13:39